=== PATIENT | male | born 1950 | race Caucasian/White ===

== ENCOUNTER → 2016-11-09 | Outpatient (CLI) | payer BC ==
[~2016-11-09] MED LIST: ALPR-411 PO; ASPEC325 PO; CALC1CAP36 PO; CALC1SOL PO; CLOP1TAB5 PO; FRS/40 PO; HPRIS5M SQ; LYR50 PO; METO10TA PO; MGNO400 PO; MRLP17 PO; NITR0.4S SL; ONDA4TAB46 PO; PANT20TA PO; PRS5 PO; ROSU20TA PO; SODI650T9 PO; TEMA15CA4 PO; TPRSR25 PO
[2016-11-09 10:31] LABS: BLOOD UREA NITROGEN 70 mg/dl (7-18); BUN/CREATININE RATIO 22.6 (10-20); CALCIUM 8.3 mg/dl (8.5-10.1); CARBON DIOXIDE 19 mmol/L (21-32); CHLORIDE 113 mmol/L (98-107); GLUCOSE 86 mg/dl (70-99); PHOSPHORUS 4.9 mg/dl (2.5-4.9); POTASSIUM 5.3 mmol/L (3.5-5.1); SODIUM 141 mmol/L (136-145)
[2016-11-09 11:11] LABS: FERRITIN 12.9 ng/ml (8.0-388.0)
== END | disposition home or self-care (01) ==
LOC: C.LAB1850 08:55
PROVIDERS: ATTEND Internal Medicine
DX: D64.9 Anemia, unspecified (principal); N18.9 Chronic kidney disease, unspecified; N17.9 Acute kidney failure, unspecified

== ENCOUNTER → 2016-12-07 | Outpatient (CLI) | payer BC ==
[~2016-12-07] MED LIST changes: -ASPEC325 PO; -HPRIS5M SQ; -MGNO400 PO; -MRLP17 PO; -ROSU20TA PO; -SODI650T9 PO; -TEMA15CA4 PO
[2016-12-07 10:13] LABS: BLOOD UREA NITROGEN 77 mg/dl (7-18); BUN/CREATININE RATIO 22.6 (10-20); CALCIUM 7.8 mg/dl (8.5-10.1); CARBON DIOXIDE 17 mmol/L (21-32); CHLORIDE 114 mmol/L (98-107); GLUCOSE 73 mg/dl (70-99); POTASSIUM 4.2 mmol/L (3.5-5.1); SODIUM 143 mmol/L (136-145)
[2016-12-07 10:18] LABS: PHOSPHORUS 4.4 mg/dl (2.5-4.9)
== END | disposition home or self-care (01) ==
LOC: C.LAB1850 08:53
PROVIDERS: ATTEND Internal Medicine
DX: N18.9 Chronic kidney disease, unspecified (principal); N17.9 Acute kidney failure, unspecified; D64.9 Anemia, unspecified

== ENCOUNTER → 2017-01-04 | Outpatient (CLI) | payer BC ==
[2017-01-04 09:49] LABS: ESTIMATED AVERAGE GLUCOSE 108 mg/dl; HA1C FLAG Normal (Normal)
[2017-01-04 10:07] LABS: BLOOD UREA NITROGEN 97 mg/dl (7-18); BUN/CREATININE RATIO 32.3 (10-20); CALCIUM 8.2 mg/dl (8.5-10.1); CARBON DIOXIDE 18 mmol/L (21-32); CHLORIDE 115 mmol/L (98-107); GLUCOSE 90 mg/dl (70-99); PHOSPHORUS 4.4 mg/dl (2.5-4.9); POTASSIUM 5.3 mmol/L (3.5-5.1); SODIUM 141 mmol/L (136-145)
== END | disposition home or self-care (01) ==
LOC: C.LAB1850 08:49
PROVIDERS: ATTEND Internal Medicine
DX: E11.22 Type 2 diabetes mellitus with diabetic chronic kidney disease (principal); R60.9 Edema, unspecified; D64.9 Anemia, unspecified; N18.9 Chronic kidney disease, unspecified

== ENCOUNTER → 2017-02-15 | Outpatient (CLI) | payer BC ==
[~2017-02-15] MED LIST changes: -PANT20TA PO; +PANT20TA2 PO
[2017-02-15 12:31] LABS: BLOOD UREA NITROGEN 70 mg/dl (7-18); BUN/CREATININE RATIO 22.6 (10-20); CARBON DIOXIDE 19 mmol/L (21-32); CHLORIDE 113 mmol/L (98-107); GLUCOSE 136 mg/dl (70-99); PHOSPHORUS 4.2 mg/dl (2.5-4.9); SODIUM 140 mmol/L (136-145)
[2017-02-15 12:54] LABS: CALCIUM 8.9 mg/dl (8.5-10.1)
== END | disposition home or self-care (01) ==
LOC: C.LAB1850 08:53
PROVIDERS: ATTEND Physician Assistant
DX: N18.9 Chronic kidney disease, unspecified (principal)

== ENCOUNTER → 2017-02-26 | Outpatient (CLI) | payer BC ==
[2017-02-26 13:56] LABS: CHOLESTEROL/HDL RATIO 2.2
== END | disposition home or self-care (01) ==
LOC: C.LAB1850 10:22
PROVIDERS: ATTEND Internal Medicine Cardiovascular Disease
DX: E78.00 Pure hypercholesterolemia, unspecified (principal)

== ENCOUNTER → 2017-03-12 | Outpatient (CLI) | payer BC ==
--- NOTE | 2017-03-12 16:04 | DIAGNOSTIC IMAGING REPORT ---
RIGHT KNEE 3 VIEWS CLINICAL HISTORY: BILATERAL KNEE PAIN Right pain COMPARISON: None. DISCUSSION: Intramedullary len overlying the left femur. Degenerative change all major joint compartments considered moderate. No significant joint effusion. There is no evidence for soft tissue swelling. IMPRESSION: Moderate degenerative change all major joint compartments. Electronically signed by: Joel Ellis M.D. 03/12/2017 4:03 PM Dictated Date/Time: 03/12/2017 4:02 PM
== END | disposition home or self-care (01) ==
LOC: C.RDSM 14:40
PROVIDERS: ATTEND Physician Assistant
DX: M17.0 Bilateral primary osteoarthritis of knee (principal)

== ENCOUNTER → 2017-03-15 | Outpatient (CLI) | payer BC ==
[2017-03-15 09:57] LABS: HEMATOCRIT 32.6 % (42-52)
== END | disposition home or self-care (01) ==
LOC: C.LAB1850 09:19
PROVIDERS: ATTEND Physician Assistant
DX: D64.9 Anemia, unspecified (principal); N18.9 Chronic kidney disease, unspecified

== ENCOUNTER → 2017-04-25 | Outpatient (CLI) | payer BC ==
[~2017-04-25] MED LIST changes: +PANT20TA PO; -PANT20TA2 PO
[2017-04-25 12:58] LABS: BLOOD UREA NITROGEN 86 mg/dl (7-18); BUN/CREATININE RATIO 28.7 (10-20); CALCIUM 8.7 mg/dl (8.5-10.1); CARBON DIOXIDE 19 mmol/L (21-32); CHLORIDE 115 mmol/L (98-107); GLUCOSE 78 mg/dl (70-99); POTASSIUM 4.7 mmol/L (3.5-5.1); SODIUM 142 mmol/L (136-145)
[2017-04-25 13:04] LABS: FERRITIN 80.4 ng/ml (8.0-388.0); PHOSPHORUS 4.2 mg/dl (2.5-4.9); PROSTATE SPECIFIC ANTIGEN 0.171 ng/ml (0.000-4.000)
== END | disposition home or self-care (01) ==
LOC: C.LAB1850 11:40
PROVIDERS: ATTEND Physician Assistant
DX: N18.9 Chronic kidney disease, unspecified (principal); N40.1 Benign prostatic hyperplasia with lower urinary tract symptoms; D64.9 Anemia, unspecified; N17.9 Acute kidney failure, unspecified

== ENCOUNTER → 2017-05-29 | Outpatient (CLI) | payer BC ==
[2017-05-29 12:35] LABS: BLOOD UREA NITROGEN 83 mg/dl (7-18); BUN/CREATININE RATIO 22.4 (10-20); CALCIUM 8.9 mg/dl (8.5-10.1); CARBON DIOXIDE 21 mmol/L (21-32); CHLORIDE 111 mmol/L (98-107); GLUCOSE 193 mg/dl (70-99); PHOSPHORUS 4.6 mg/dl (2.5-4.9); POTASSIUM 4.4 mmol/L (3.5-5.1); SODIUM 140 mmol/L (136-145)
== END | disposition home or self-care (01) ==
LOC: C.LAB1850 10:06
PROVIDERS: ATTEND Physician Assistant
DX: N18.9 Chronic kidney disease, unspecified (principal); N17.9 Acute kidney failure, unspecified; D64.9 Anemia, unspecified

== ENCOUNTER → 2017-06-14 | Outpatient (CLI) | payer BC ==
--- NOTE | 2017-07-01 11:31 | CODING QUERY MEDICAL NECESSITY ---
SUPPORTING DIAGNOSIS NEEDED Young PA, A supporting diagnosis is required for the test/procedure performed on this patient in order for us to be reimbursed by the patient's insurance. Please provide a supporting diagnosis for the following test/procedure listed below next to the test name along with your signature. *If there is no additional diagnosis for this patient that would support the following test/procedure please document that below next to the test/procedure. Test(s)/Procedure(s) that require a supporting diagnosis: * ([id number]) B12 VITAMIN LEVEL DIAGNOSIS: DATE OF SERVICE: 06/14/17 Provider Signature: Date: Thank you Chuck Mancera [facility] Information Management Once completed, please kindly fax back to [phone] For questions please call [phone]
== END | disposition home or self-care (01) ==
LOC: C.LAB1850 09:22
PROVIDERS: ATTEND Physician Assistant
DX: D64.9 Anemia, unspecified (principal)

== ENCOUNTER → 2017-07-12 | Outpatient (CLI) | payer BC ==
[2017-07-12 13:13] LABS: HEMATOCRIT 35.6 % (42-52)
[2017-07-12 13:33] LABS: BLOOD UREA NITROGEN 92 mg/dl (7-18); BUN/CREATININE RATIO 25.6 (10-20); CALCIUM 8.5 mg/dl (8.5-10.1); CARBON DIOXIDE 19 mmol/L (21-32); CHLORIDE 109 mmol/L (98-107); GLUCOSE 95 mg/dl (70-99); PHOSPHORUS 5.5 mg/dl (2.5-4.9); POTASSIUM 4.6 mmol/L (3.5-5.1); SODIUM 138 mmol/L (136-145)
== END | disposition home or self-care (01) ==
LOC: C.LAB1850 12:18
PROVIDERS: ATTEND Physician Assistant
DX: N18.9 Chronic kidney disease, unspecified (principal); D64.9 Anemia, unspecified

== ENCOUNTER → 2017-09-09 | Outpatient (CLI) | payer BC ==
[~2017-09-09] MED LIST changes: -PANT20TA PO; +PANT20TA2 PO
[2017-09-09 14:57] LABS: BLOOD UREA NITROGEN 62 mg/dl (7-18); BUN/CREATININE RATIO 15.7 (10-20); CALCIUM 8.6 mg/dl (8.5-10.1); CARBON DIOXIDE 19 mmol/L (21-32); CHLORIDE 108 mmol/L (98-107); CREATININE 3.95 mg/dl (0.60-1.40); GLUCOSE 95 mg/dl (70-99); POTASSIUM 4.9 mmol/L (3.5-5.1); SODIUM 138 mmol/L (136-145)
[2017-09-09 15:01] LABS: FERRITIN 57.2 ng/ml (8.0-388.0); PHOSPHORUS 4.9 mg/dl (2.5-4.9)
== END | disposition home or self-care (01) ==
LOC: C.LAB1850 12:44
PROVIDERS: ATTEND Physician Assistant
DX: N18.9 Chronic kidney disease, unspecified (principal)

== ENCOUNTER → 2017-10-18 | Outpatient (CLI) | payer BC ==
[~2017-10-18] MED LIST changes: +ALPR0.254 PO; +CALC0.5C PO; +DXY100 PO; +EPGI2M SQ; +IPRA-64 INH; +LSX20 PO; +NEBMAC; +PANT40TA2 PO; +PRED10TA PO; +SODI650T8 PO; +TPRSR/25 PO; +ULT50 PO
[2017-10-18 09:32] LABS: ALBUMIN 3.2 gm/dl (3.4-5.0); BLOOD UREA NITROGEN 53 mg/dl (7-18); CALCIUM 8.5 mg/dl (8.5-10.1); CARBON DIOXIDE 20 mmol/L (21-32); CREATININE 3.78 mg/dl (0.60-1.40); GLUCOSE 100 mg/dl (70-99); PHOSPHORUS 4.3 mg/dl (2.5-4.9); POTASSIUM 5.1 mmol/L (3.5-5.1); SODIUM 137 mmol/L (136-145)
== END | disposition home or self-care (01) ==
LOC: C.LAB1850 08:38
PROVIDERS: ATTEND Physician Assistant
DX: N18.9 Chronic kidney disease, unspecified (principal)

== ENCOUNTER → 2017-11-29 | Outpatient (CLI) | payer BC ==
[~2017-11-29] MED LIST changes: -ALPR0.254 PO; -CALC0.5C PO; -DXY100 PO; -EPGI2M SQ; -IPRA-64 INH; -LSX20 PO; -NEBMAC; -PANT40TA2 PO; -PRED10TA PO; -SODI650T8 PO; -TPRSR/25 PO; -ULT50 PO
[2017-11-29 11:03] LABS: ALBUMIN 3.2 gm/dl (3.4-5.0); BLOOD UREA NITROGEN 97 mg/dl (7-18); CALCIUM 8.5 mg/dl (8.5-10.1); CARBON DIOXIDE 15 mmol/L (21-32); CREATININE 5.38 mg/dl (0.60-1.40); GLUCOSE 99 mg/dl (70-99); PHOSPHORUS 6.6 mg/dl (2.5-4.9); POTASSIUM 4.7 mmol/L (3.5-5.1); SODIUM 135 mmol/L (136-145); TRANSFERRIN 149 mg/dl (200-360)
== END | disposition home or self-care (01) ==
LOC: C.LAB1850 09:26
PROVIDERS: ATTEND Physician Assistant
DX: N18.9 Chronic kidney disease, unspecified (principal); E21.3 Hyperparathyroidism, unspecified

== ENCOUNTER → 2017-12-06 | Outpatient (CLI) | payer BC ==
[2017-12-06 13:14] LABS: BASO % 0.5 %; BASO ABS # 0.04 K/uL (0-0.2); EOS % 4.4 %; EOS ABS # 0.34 K/uL (0-0.5); HEMATOCRIT 34.3 % (42-52); HEMOGLOBIN 11.5 g/dL (14.0-18.0); IG# 0.01 K/uL (0.00-0.02); LYMPH % 14.7 %; LYMPH ABS # 1.13 K/uL (1.2-3.4); MEAN CELL VOLUME 92.2 fL (80-100); MEAN CORPUSCULAR HEMOGLOBIN 30.9 pg (25-34); MEAN CORPUSCULAR HGB CONC 33.5 g/dl (32-36); MEAN PLATELET VOLUME 10.7 fL (7.4-10.4); MONO % 4.5 %; MONO ABS # 0.35 K/uL (0.11-0.59); NEUT % 75.8 %; NEUT ABS # 5.83 K/uL (1.4-6.5); PLATELET COUNT 288 K/uL (130-400); RED CELL DISTRIBUTION WIDTH SD 47.1 fL (36.4-46.3)
[2017-12-06 14:03] LABS: ALBUMIN 3.2 gm/dl (3.4-5.0); BLOOD UREA NITROGEN 104 mg/dl (7-18); CALCIUM 8.9 mg/dl (8.5-10.1); CARBON DIOXIDE 14 mmol/L (21-32); CREATININE 5.98 mg/dl (0.60-1.40); GLUCOSE 108 mg/dl (70-99); PHOSPHORUS 7.1 mg/dl (2.5-4.9); POTASSIUM 4.5 mmol/L (3.5-5.1); SODIUM 136 mmol/L (136-145)
== END | disposition home or self-care (01) ==
LOC: C.LAB1850 12:09
PROVIDERS: ATTEND Internal Medicine
DX: E78.00 Pure hypercholesterolemia, unspecified (principal); N17.9 Acute kidney failure, unspecified; D64.9 Anemia, unspecified; N18.9 Chronic kidney disease, unspecified

== ENCOUNTER → 2017-12-13 | Outpatient (CLI) | payer BC ==
[2017-12-13 15:02] LABS: ALBUMIN 3.2 gm/dl (3.4-5.0); BLOOD UREA NITROGEN 72 mg/dl (7-18); CALCIUM 8.6 mg/dl (8.5-10.1); CARBON DIOXIDE 18 mmol/L (21-32); CREATININE 5.59 mg/dl (0.60-1.40); GLUCOSE 123 mg/dl (70-99); PHOSPHORUS 5.6 mg/dl (2.5-4.9); POTASSIUM 4.1 mmol/L (3.5-5.1); SODIUM 138 mmol/L (136-145)
== END | disposition home or self-care (01) ==
LOC: C.LAB1850 12:41
PROVIDERS: ATTEND Internal Medicine
DX: E78.00 Pure hypercholesterolemia, unspecified (principal)

== ENCOUNTER → 2017-12-18 | Outpatient (CLI) | payer BC ==
[2017-12-18 13:38] LABS: BLOOD UREA NITROGEN 65 mg/dl (7-18); CALCIUM 8.5 mg/dl (8.5-10.1); CARBON DIOXIDE 16 mmol/L (21-32); CREATININE 5.47 mg/dl (0.60-1.40); GLUCOSE 92 mg/dl (70-99); PHOSPHORUS 4.9 mg/dl (2.5-4.9); POTASSIUM 4.1 mmol/L (3.5-5.1); SODIUM 135 mmol/L (136-145)
== END | disposition home or self-care (01) ==
LOC: C.LAB1850 10:44
PROVIDERS: ATTEND Internal Medicine
DX: N18.9 Chronic kidney disease, unspecified (principal)

== ENCOUNTER → 2017-12-20 | Outpatient (CLI) | payer BC ==
--- NOTE | 2017-12-20 13:20 | DIAGNOSTIC IMAGING REPORT ---
ABDOMEN 2VIEW W/PA CHEST RTN CLINICAL HISTORY: HYPERCHOLESTEROLEMIA COMPARISON STUDY: 02/02/2016 FINDINGS: Negative chest. Mild stable emphysematous change. Nonobstructive bowel pattern. Operative changes consistent with a left hip nailing type procedure, cholecystectomy, as well as stents within the arterial structures of the pelvis. IMPRESSION: No acute process of the abdomen or pelvis. The above report was generated using voice recognition software. It may contain grammatical, syntax or spelling errors. Electronically signed by: Joel Ellis M.D. 12/20/2017 1:19 PM Dictated Date/Time: 12/20/2017 1:18 PM
== END | disposition home or self-care (01) ==
LOC: C.RAD1850 13:02
PROVIDERS: ATTEND Internal Medicine
DX: E78.00 Pure hypercholesterolemia, unspecified (principal)

== ENCOUNTER → 2017-12-27 | Outpatient (CLI) | payer BC ==
[2017-12-27 09:59] LABS: HEMATOCRIT 32.2 % (42-52); HEMOGLOBIN 10.5 g/dL (14.0-18.0)
[2017-12-27 10:55] LABS: BLOOD UREA NITROGEN 64 mg/dl (7-18); CALCIUM 8.8 mg/dl (8.5-10.1); CARBON DIOXIDE 16 mmol/L (21-32); CREATININE 5.45 mg/dl (0.60-1.40); GLUCOSE 93 mg/dl (70-99); PHOSPHORUS 5.6 mg/dl (2.5-4.9); POTASSIUM 4.4 mmol/L (3.5-5.1); SODIUM 135 mmol/L (136-145)
== END | disposition home or self-care (01) ==
LOC: C.LAB1850 09:12
PROVIDERS: ATTEND Internal Medicine
DX: E78.00 Pure hypercholesterolemia, unspecified (principal); N17.9 Acute kidney failure, unspecified; D64.9 Anemia, unspecified; N18.9 Chronic kidney disease, unspecified

== ENCOUNTER → 2018-01-03 | Outpatient (CLI) | payer BC ==
[~2018-01-03] MED LIST changes: +CALC0.5C PO; +EPGI2M SQ; +LSX20 PO; +PANT40TA2 PO; +TPRSR/25 PO; +ULT50 PO; +XNX25 PO
[2018-01-03 15:21] LABS: HEMOGLOBIN 10.5 g/dL (14.0-18.0)
[2018-01-03 16:06] LABS: ALBUMIN 2.7 gm/dl (3.4-5.0); BLOOD UREA NITROGEN 69 mg/dl (7-18); CALCIUM 8.4 mg/dl (8.5-10.1); CARBON DIOXIDE 16 mmol/L (21-32); CREATININE 6.07 mg/dl (0.60-1.40); GLUCOSE 100 mg/dl (70-99); PHOSPHORUS 6.1 mg/dl (2.5-4.9); POTASSIUM 4.2 mmol/L (3.5-5.1); SODIUM 134 mmol/L (136-145)
== END | disposition home or self-care (01) ==
LOC: C.LAB1850 14:20
PROVIDERS: ATTEND Internal Medicine
DX: E11.9 Type 2 diabetes mellitus without complications (principal)

== ENCOUNTER 2018-01-10 14:22 | Inpatient (IN) | payer BC, OTHER ==
[~2018-01-10] VITALS: Ht 177.8 cm; Wt 71.2 kg
[~2018-01-10 14:22] MED LIST changes: -CALC0.5C PO; -CLOP1TAB5 PO; -DXY100 PO; -EPGI2M SQ; -IPRASOL4 INH; -LSX20 PO; -NEBMAC; -NITR0.4S SL; -ONDA4TAB46 PO; -PANT40TA2 PO; -PRED10TA PO; -SODI650T8 PO; -TPRSR/25 PO; -ULT50 PO; -XNX25 PO
[2018-01-10] MEDS ORDERED: SODIUM CHLORIDE 0.9% 1000ML 1,000 ML IV STA (15:01)
[2018-01-10] MEDS ORDERED: ALBUT/IPRATROP 3MG/0.5MG NEB 3 ML VIAL INH STA (15:04)
[2018-01-10] MEDS ORDERED: ACETAMINOPHEN IV 100 ML IV ONE (15:15)
[2018-01-10 15:22] LABS: BASO % 0.6 %; BASO ABS # 0.05 K/uL (0-0.2); EOS % 0.7 %; EOS ABS # 0.06 K/uL (0-0.5); HEMATOCRIT 38.4 % (42-52); HEMOGLOBIN 11.9 g/dL (14.0-18.0); IG# 0.03 K/uL (0.00-0.02); LYMPH ABS # 0.76 K/uL (1.2-3.4); MEAN CORPUSCULAR HEMOGLOBIN 30.1 pg (25-34); MEAN PLATELET VOLUME 9.9 fL (7.4-10.4); MONO % 4.5 %; MONO ABS # 0.38 K/uL (0.11-0.59); NEUT % 84.8 %; PLATELET COUNT 394 K/uL (130-400); RED CELL DISTRIBUTION WIDTH CV 15.6 % (11.5-14.5); RED CELL DISTRIBUTION WIDTH SD 55.6 fL (36.4-46.3); WHITE BLOOD COUNT 8.48 K/uL (4.8-10.8)
[2018-01-10] MEDS ORDERED: PANT40TA2 PO (15:33)
[2018-01-10] MEDS ORDERED: ULT50 PO (15:33)
[2018-01-10] MEDS ORDERED: EPGI2M SQ (15:33)
[2018-01-10] MEDS ORDERED: LSX20 PO (15:33)
[2018-01-10] MEDS ORDERED: PRS5 PO (15:33)
[2018-01-10] MEDS ORDERED: XNX25 PO (15:33)
[2018-01-10] MEDS ORDERED: CALC0.5C PO (15:33)
[2018-01-10] MEDS ORDERED: TPRSR/25 PO (15:33)
[2018-01-10 15:47] LABS: ALBUMIN 2.7 gm/dl (3.4-5.0); CALCIUM 8.6 mg/dl (8.5-10.1); CREATININE 5.14 mg/dl (0.60-1.40); POTASSIUM 4.2 mmol/L (3.5-5.1); TOTAL PROTEIN 7.4 gm/dl (6.4-8.2)
[2018-01-10] MEDS ORDERED: DOXYCYCLINE HYCLATE 100 MG in DEXTROSE 5% 100ML IV STA (15:58)
[2018-01-10] MEDS ORDERED: AZTREONAM 2000 MG in DEXTROSE 5% 100 ML IV STA (15:58)
[2018-01-10] MEDS ORDERED: NITR0.4S SL (16:00)
[2018-01-10] MEDS ORDERED: CLOP1TAB5 PO (16:00)
[2018-01-10] MEDS ORDERED: ONDA4TAB46 PO (16:31)
[2018-01-10] MEDS ORDERED: TRAMADOL HCL 50 MG TAB PO STA (16:34)
[2018-01-10] MEDS ORDERED: ALUMINUM/MAGNESIUM/SIMETH (MAALOX MAX) 30 ML UDC PO PRN (16:45)
[2018-01-10] MEDS ORDERED: ONDANSETRON INJ 2 MG/ML 2 ML VIAL IV PRN (16:45)
[2018-01-10] MEDS ORDERED: MAGNESIUM HYDROXIDE SUSP 30 ML UDC PO PRN (16:45)
[2018-01-10] MEDS ORDERED: NITROGLYCERIN 0.4 MG SL PER TAB CHARGE SL PRN (16:45)
[2018-01-10] MEDS ORDERED: POLYETHYLENE (MIRALAX) 17 GM PACK PO PRN (16:45)
[2018-01-10] MEDS ORDERED: ACETAMINOPHEN 325 MG TAB PO PRN (16:45)
[2018-01-10] MEDS ORDERED: ARTIFICIAL TEARS OP SOLN OP PRN (16:45)
--- NOTE | 2018-01-10 16:50 | History and Physical ---
History & Physical Date & Time of Service: Jan 10, 2018 at 16:47 Chief Complaint: Pneumonia Primary Care Physician: Jesus Maravilla M.D. History of Present Illness Source: patient, spouse Mr. Miranda is a 67 y/o male with PMHx of Systolic CHF (EF 20-25%), CKD Stage IV- V (not on dialysis yet), CAD S/P LA and PCI, Anemia of Chronic Disease, T2DM ( off medications), BPH, Hyperparathyroidism, HTN, HLD, Paroxysmal Atrial Fibrillation/SVT, and H/O Gastric Bypass Surgery who presents to the ED c/o cough x 2 weeks. Patient gets Q2W blood draws to assess his anemia and to see if he needs Procrit which he received a dose today. His reports that she saw Dr. Samayoa and was concerned due to his coughing and he ordered an XRay. CXR showing subsegmental opacities of the posterior basal left lower lobe which may be pneumonia vs atelectasis and mild blunting of bilateral posterior costophrenic angles that is scarring vs atelectasis vs effusions. reports that they both have been dealing with URI symptoms but she feels like he is not getting better. He completed a Z-martinez during this illness but did not get complete relief. He reports sinus congestion and post nasal drip. He has a productive cough of yellow sputum. He has also been utilizing his 's inhaler with some relief of his symptoms. He had issues with asthma in the past but states he has had no long-term issues. He has a H/O smoking but quit in 2008 but does not think he has been diagnosed with COPD. He is also complaining of burning chest pain that has been resistant to his normal acid reducers. thinks he had a fever a couple days ago but it broke and he had a night of sweating but since returned to his normal. States he is always feeling cold. He also has some mild irritation to his L eye and states pink eye has been circulating the family. He denies purulent discharge or eye irritation currently. Also having some feeling of water behind the eyes but hard to completely visualize due to cerumen. There is some mild tenderness to tugging of the pinna of the L eye on examination. 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, One Eye (12) BPH with obstruction/lower urinary tract symptoms (13) Chronic kidney disease, stage V (14) Congestive Heart Failure Nos (15) Diab Syl Wo Compl, Type Ii Or Unspec Type, Not Uncntrld (16) Esophageal Reflux (17) Head injury (18) Hip fracture (19) Hyperkalemia (20) Hyperkalemia (21) Hyperphosphatemia (22) Hypertension Nos (23) Infection associated with internal fixation device of left humerus (24) Intertrochanteric fracture of left hip (25) Ischemic heart disease (26) Left humeral fracture (27) Left humeral fracture (28) Neuropathy In Diabetes (29) Old Myocardial Infarct (30) Pneumonia (31) Renal & Ureteral Dis Nos (32) Renal insufficiency (33) Secondary hyperparathyroidism (34) Symptomatic anemia (35) Syncope (36) Syncope (37) Unspec Diastolic Hrt Failure (38) Unspecified Sleep Apnea (39) UTI (urinary tract infection) (40) Vomiting and diarrhea (41) Vomiting and diarrhea (42) Vomiting and diarrhea (43) Weakness Surgical Problems: (1) History of gastric bypass (2) Hx of cholecystectomy Family History Heart disease Kidney disease (His Brother had renal failure but etiology not known) Social History Smoking Status: Former Smoker Drug Use: none Marital Status: Housing status: lives with family Immunizations History of Influenza Vaccine: Unknown Influenza Vaccine Date: Jul 16, 2005 History of Tetanus Vaccine?: Unknown Tetanus Immunization Date: Jan 19, 2006 History of Pneumococcal: Unknown Pneumococcal Date: Jul 16, 2005 History of Hepatitis B Vaccine: Unknown Allergies Coded Allergies: BEE STING (Verified Allergy, Severe, ANAPHYLAXIS, 11/28/16) Penicillins (Verified Allergy, Severe, Anaphylaxis, OK to receive Invanz per Dr. [place], 11/28/16) Per RN Vancomycin (Verified Allergy, Severe, anaphylaxis, 11/28/16) Adhesives (Verified Allergy, Unknown, TAPE, 11/28/16) Home Medications Scheduled Alprazolam (Alprazolam), 0.5 MG PO HS Calcitriol (Calcitriol), 0.5 MCG PO DAILY Clopidogrel Bisulfate (Plavix), 75 MG PO DAILY Epoetin Andrew (Procrit), 1 DOSE SQ UD Finasteride (Finasteride), 5 MG PO Q2D Metoprolol Succinate (Metoprolol Succinate ER), 12.5 MG PO HS Ondansetron Hcl (Zofran), 4 MG PO Q6 Pantoprazole (Pantoprazole Sodium), 40 MG PO DAILY Tramadol HCl (Tramadol HCl), 50 MG PO AMHS Scheduled PRN Furosemide (Furosemide), 20 MG PO DAILY PRN for EDEMA Nitroglycerin (Nitrostat), 0.4 MG SL UD PRN for Chest Pain Review of Systems Constitutional: + fever, + chills, + weight loss (chronic) Eyes: + redness (L eye and irritated) ENT: + nasal symptoms, No trouble swallowing Respiratory: + cough, + sputum, + wheezing, + shortness of breath, No hemoptysis Cardiovascular: No chest pain Abdomen: No pain, No nausea, No vomiting, No diarrhea, No constipation, No GI bleeding Musculoskeletal: No swelling, No calf pain Genitourinary - Male: + urinary frequency, No dysuria Hematologic / Lymphatic: No abnormal bleeding/bruising, No clotting problems Integumentary: No rash Physical Exam Vital Signs Date Time Temp Pulse Resp B/P (MAP) Pulse Ox O2 Delivery O2 Flow Rate FiO2 01/10/18 16:40 101 01/10/18 16:28 104 16 132/81 100 Room Air 01/10/18 15:22 98 Room Air 01/10/18 14:26 115 24 124/64 98 Room Air General Appearance: no apparent distress, + cachetic Head: normocephalic, atraumatic Eyes: + abnormal sclerae exam (minimal conjunctivitis without purulent drainage ) ENT: hearing grossly normal, + pertinent finding (cerumen b/l; tenderness with pulling on pinna of L ear; oral mucosa dry) Neck: supple, no JVD, trachea midline Respiratory/Chest: no respiratory distress, no accessory muscle use, + decreased breath sounds Cardiovascular: regular rate, rhythm, no gallop, no murmur Abdomen/GI: normal bowel sounds, non tender, soft Extremities/Musculoskelatal: no calf tenderness, no pedal edema Neurologic/Psych: alert, oriented x 3 Skin: normal color, warm/dry Diagnostics Laboratory Results Results Past 24 Hours Test 01/10/18 14:50 01/10/18 15:07 01/10/18 15:19 Range/Units White Blood Count 8.48 4.8-10.8 K/uL Red Blood Count 3.96 4.7-6.1 M/uL Hemoglobin 11.9 14.0-18.0 g/dL Hematocrit 38.4 42-52 % Mean Corpuscular Volume 97.0 80-100 fL Mean Corpuscular Hemoglobin 30.1 25-34 pg Mean Corpuscular Hemoglobin Concent 31.0 32-36 g/dl Platelet Count 394 130-400 K/uL Mean Platelet Volume 9.9 7.4-10.4 fL Neutrophils (%) (Auto) 84.8 % Lymphocytes (%) (Auto) 9.0 % Monocytes (%) (Auto) 4.5 % Eosinophils (%) (Auto) 0.7 % Basophils (%) (Auto) 0.6 % Neutrophils # (Auto) 7.20 1.4-6.5 K/uL Lymphocytes # (Auto) 0.76 1.2-3.4 K/uL Monocytes # (Auto) 0.38 0.11-0.59 K/uL Eosinophils # (Auto) 0.06 0-0.5 K/uL Basophils # (Auto) 0.05 0-0.2 K/uL RDW Standard Deviation 55.6 36.4-46.3 fL RDW Coefficient of Variation 15.6 11.5-14.5 % Immature Granulocyte % (Auto) 0.4 % Immature Granulocyte # (Auto) 0.03 0.00-0.02 K/uL Sodium Level 138 136-145 mmol/L Potassium Level 4.2 3.5-5.1 mmol/L Chloride Level 110 98-107 mmol/L Carbon Dioxide Level 17 21-32 mmol/L Anion Gap 11.0 3-11 mmol/L Blood Urea Nitrogen 61 7-18 mg/dl Creatinine 5.14 0.60-1.40 mg/dl Est Creatinine Clear Calc Drug Dose 13.6 ml/min Estimated GFR () 12.5 Estimated GFR (Non- 10.8 BUN/Creatinine Ratio 12.0 10-20 Random Glucose 165 70-99 mg/dl Calcium Level 8.6 8.5-10.1 mg/dl Total Bilirubin 0.3 0.2-1 mg/dl Direct Bilirubin 0.1 0-0.2 mg/dl Aspartate Amino Transf (AST/SGOT) 11 15-37 U/L Alanine Aminotransferase (ALT/SGPT) 10 12-78 U/L Alkaline Phosphatase 68 45-117 U/L Total Protein 7.4 6.4-8.2 gm/dl Albumin 2.7 3.4-5.0 gm/dl Lipase 89 73-393 U/L Bedside Troponin I 0.170 0-0.045 ng/ml Bedside Lactic Acid Venous 1.85 0.90-1.70 mmol/L Microbiology Results 01/10/18 Blood Culture, Received Pending 01/10/18 Blood Culture, Received Pending Diagnostic Radiology CHEST 2 VIEWS ROUTINE HISTORY: 67 years-old Male R05 Cough acute cough COMPARISON: Acute abdominal series radiographs 12/20/2017 TECHNIQUE: PA and lateral views of the chest FINDINGS: Cardiomediastinal and hilar silhouettes are within normal limits. Atherosclerosis of the aorta. No pneumothorax. Lungs are hyperinflated with diaphragmatic flattening. Blunting of the posterior costophrenic angles suggests. Minimal subsegmental opacities of the posterior basal left lower lobe. Bones of the chest appear grossly intact. Multilevel endplate spurring about the spine. Surgical clips of the upper abdomen. IMPRESSION: 1. Subsegmental opacities of the posterior basal left lower lobe suggest atelectasis or pneumonia. 2. Mild blunting of the bilateral posterior costophrenic angles may be secondary to scarring/atelectasis or trace effusions. 3. Mild hyperinflation. EKG Sinus rhythm with 1st degree A-V block Non-specific intra-ventricular conduction block T wave abnormality, consider inferolateral ischemia Abnormal ECG When compared with ECG of 14-NOV-2015 06:44, QRS duration has increased Premature ventricular complexes are no longer Present Confirmed by KATHERINE RIVERA ([id number]) on 01/10/2018 3:24:02 PM Impression Assessment and Plan Mr. Miranda is a 67 y/o male with PMHx of Systolic CHF (EF 20-25%), CKD Stage IV- V (not on dialysis yet), CAD S/P LA and PCI, Anemia of Chronic Disease, T2DM ( off medications), BPH, Hyperparathyroidism, HTN, HLD, Paroxysmal Atrial Fibrillation/SVT, and H/O Gastric Bypass Surgery who presents to the ED c/o cough x 2 weeks. Pneumonia: - Due to anaphylaxis allergies and concern for QT prolongation - pharmacy recommending Aztreonam and Doxycycline -- Completed Z-martinez as outpatient - Duonebs - Gently hydrate with NSS at 75 mL/hr as patient appears dry and skin turgor is poor - will only give 1 bag and reassess given EF of only 20-25% - Has a smoking history but no wheezing on examination currently and will hold on steroids at this time Chest Pain and Elevated Troponins: - Likely related to GI causes and inflammation from possible pneumonia - will trend troponins which likely will be elevated in setting of CKD - will monitor on telemetry - Protonix 40 mg daily L Eye Irritation and L Ear Pain: - Eye does not appear infectious and is only minimally red without drainage - will use artificial tears to assist with irritation - Ciprodex ear drops in L ear - may need cerumen removal Weight Loss: - Reporting progressive weight loss and lack of appetite - will continue to monitor and try to encourage oral intake - currently placed renal diet CKD Stage IV-V: Baseline 5.3-5.5 - Producing adequate urine and electrolytes acceptable - follows with Dr. Hawkins ; planning to hold on dialysis as long as possible - has AV fistula placed in preparation - Cr currently is better than his baseline - will continue to monitor and avoid nephrotoxins CAD S/P LA and PCI and Chronic Systolic CHF: Appears Hypovolemic: - Has not required Lasix for approx. 1 month - is followed closely by Dr. Hawkins for volume control in setting of CKD - Reports H/O paroxysmal atrial fibrillation - not on AC - Plavix 75 mg daily and Toprol XL 12.5 mg HS BPH: - Proscar 5 mg Q2D Insomnia: - Xanax 0.5 mg HS Chronic Back Pain: - Ultram 50 mg BID T2DM (Resolved since Gastric Bypass): Continue to monitor just with BMPs DVT Prophylaxis: Heparin Code Status: FULL RESUSCITATION Disposition: PT/OT evaluations I personally interviewed and examined the patient. I agree with history of present illness and physical exam mentioned above, I also performed my own history taking and examination. Past medical history and review of system has been obtained by myself I reviewed all pertinent labs and studies Reviewed current medications I discussed and formulated of the assessment and plan mentioned above. Please refer to the Summary mentioned below. 67 years old man with chronic kidney disease stage V at the age of dialysis status post fistula placement, CAD status post LA and PCI, severe anemia likely of chronic diseases, hyperparathyroidism, hypertension, dyslipidemia, systolic congestive heart failure with ejection fraction of 20%, paroxysmal atrial fibrillation, and gastric bypass surgery. Patient has been having subacute productive cough with generalized weakness, weight loss, fatigue. Patient appears chronically ill, out of proportion of his chest x-ray findings. Also appears to be cachectic. Patient is being admitted for pneumonia but I will order CT scan chest without contrast to rule out any underlying mass or empyema, also will order TSH, will order anemia studies including B12 and folate giving his history of gastric bypass that could be contributing to his anemia of chronic diseases.. General Appearance: Appears to be in moderate acute distress, cachectic Eyes: normal Sclerae, extraocular muscle intact ENT: hearing grossly normal Neck: supple Respiratory/Chest: Decreased air entry bilaterally, scattered rhonchi Cardiovascular: regular rate, rhythm, no murmur Abdomen: non tender, soft, no masses Extremities: no edema Neurologic/Psychiatric: Awake alert oriented times place and person moves all extremities sensation intact cranial nerves II-12 appear to be intact Skin: normal color, warm/dry, no rash Alexsander Elder MD, [facility] Resuscitation Status VTE Prophylaxis Will order VTE Prophylaxis: Yes
[2018-01-10] MEDS ORDERED: TRAMADOL HCL 50 MG TAB ONE (16:58)
[2018-01-10 20:00] VITALS: BP 126/81; PULSE 93; TEMP 36.3; Ht 177.8 cm; Wt 71.2 kg
[2018-01-10 20:16] VITALS: BP 126/81; PULSE 93; TEMP 36.3; O2SAT 100
[2018-01-10 20:26] LABS: RETIC COUNT % 2.5 % (0.5-2.0)
--- NOTE | 2018-01-10 20:48 | EMERGENCY ROOM VISIT NOTE ---
ED Visit Note First contact with patient: 14:48 I have personally evaluated and examined this patient. I agree with assessment and plan of Feliciano Marroquin PA-C. 67 yr old male arrives with sepsis secondary to pneumonia. IV fluids started and empiric abx given. Not in septic shock and with his history would hold off on 30ml/kg IV fluids at this time.
[2018-01-10] MEDS ORDERED: SODIUM CHLORIDE 0.9% 1000ML 1,000 ML IV SCH (21:05)
[2018-01-10] MEDS: CIPRO 0.3%/DEXAMETHASONE 0.1% OTIC SUSP 7.5ML OTL SCH (22:38)
[2018-01-10] MEDS: METOPROLOL SUCC 25MG EXT REL TAB PO SCH (22:39)
[2018-01-10] MEDS: TRAMADOL HCL 50 MG TAB PO SCH (22:39)
[2018-01-10] MEDS: ALPRAZOLAM 0.25 MG TAB PO SCH (22:39)
--- NOTE | 2018-01-10 23:34 | EMERGENCY ROOM VISIT NOTE ---
ED Visit Note First contact with patient: 14:48 Chief Complaint: Pneumonia. History of Present Illness: Mr. Potter is a 67-year-old white male who ambulates into the ED accompanied by his complaining of pneumonia. Patient and reports patient has not been feeling well for approximately the last 2 weeks and has been having a nonproductive cough, tactile fevers, weakness and fatigue. 12 days ago he was seen by his primary care provider and was diagnosed with bronchitis and was prescribed a Zithromax pack. He reports he saw some mild improvement in his cough but over the last week it has returned and intensified. Today he was seen to have his hemoglobin hematocrit checked for his chronic anemia and a chest x-ray was performed which showed a left lower lobe pneumonia. He was encouraged to come to the emergency department for further evaluation and care. During his visit at the doctor's today reports he did get Procrit. Currently patient is complaining of feeling short of breath and is having chest discomfort. He reports the shortness of breath is constant and worsens with ambulation. He reports minimal relief of his shortness of breath at rest. He describes his chest discomfort as a burning sensation throughout the anterior chest wall. He rates this discomfort 7/10. The pain is nonradiating. The pain worsens with cough. He has not identified any alleviating factors related to the pain. He has not taken any medications for this discomfort prior to arrival at the hospital. Associated with his symptoms it is reported that he has had tactile fevers and patient complains of increasing fatigue and weakness. Patient denies diaphoresis, headache, dizziness, lightheadedness, hemoptysis, previous clots, claudication, cramping, recent surgery/inactivity/extended travel, abdominal pain, nausea, vomiting, diarrhea, constipation, rectal bleeding, black/tarry stools, urinary symptoms, back/flank pain, extremity pain. Review of Systems: As noted above in history of present illness. All body systems were reviewed and found to be negative as noted above. Past Medical History: As noted above and (1) Anemia Nos (2) Angina Pectoris Nec/Nos (3) Atrial Fibrillation (4) Blindness, One Eye (5) BPH with obstruction/lower urinary tract symptoms (6) Chronic kidney disease, stage V (7) Congestive Heart Failure Nos (8) Diab Syl Wo Compl, Type Ii Or Unspec Type, Not Uncntrld (9) Esophageal Reflux (10) Hip fracture (11) Hyperphosphatemia (12) Hypertension Nos (13) Ischemic heart disease (14) Neuropathy In Diabetes (15) Old Myocardial Infarct (16) Renal & Ureteral Dis Nos (17) Secondary hyperparathyroidism (18) Unspec Diastolic Hrt Failure (19) Unspecified Sleep Apnea Surgical Problems: (1) History of gastric bypass (2) Hx of cholecystectomy Current Medications: Medications Dose Route/Sig Max Daily Dose Days Date Category Dose Instructions Procrit (Epoetin Andrew) Unknown Strength Inj 1 Dose SQ UD 01/10/18 Reported Tramadol HCl 50 Mg Tab 50 Mg PO AMHS 01/10/18 Reported Calcitriol 0.5 Mcg Cap 0.5 Mcg PO DAILY 01/10/18 Reported Pantoprazole Sodium (Pantoprazole) 40 Mg Tab 40 Mg PO DAILY 01/10/18 Reported Metoprolol Succinate ER (Metoprolol Succinate) 25 Mg Tabcr 12.5 Mg PO HS 01/10/18 Reported Furosemide 20 Mg Tab 20 Mg PO DAILY PRN 01/10/18 Reported Finasteride 5 Mg Tab 5 Mg PO Q2D 01/10/18 Reported Alprazolam 0.25 Mg Tab 0.5 Mg PO HS 01/10/18 Reported Zofran (Ondansetron HCl) 4 Mg Tab 4 Mg PO Q6 09/13/15 Reported Nitrostat (Nitroglycerin) 0.4 Mg Sub 0.4 Mg SL UD PRN 05/27/[address] ONE TABLET UNDER THE TONGUE EVERY 5 MINUTES FOR UP TO 3 DOSES IF NEEDED FOR CHEST PAIN. Plavix (Clopidogrel Bisulfate) 75 Mg Tab 75 Mg PO DAILY 05/27/14 Reported Allergies to Medications: Penicillin and vancomycin. Social History: Patient is not employed; he feels safe in his home environment; Physical Examination: Vital Signs: Date Time Temp Pulse Resp B/P (MAP) Pulse Ox O2 Delivery O2 Flow Rate FiO2 01/10/18 16:40 101 01/10/18 16:28 104 16 132/81 100 Room Air 01/10/18 15:22 98 Room Air 01/10/18 14:26 115 24 124/64 98 Room Air GENERAL: 67-year-old male in mild respiratory distress, chronically ill- appearing, afebrile, tachycardic but not hypotensive. Patient is emaciated. NEUROLOGICAL: Awake, alert and oriented to person, place and time. Patient is slow to respond. Answering questions appropriately and following commands. Good hand eye coordination. Good short-term and long-term recall. Cranial nerves II through XII grossly intact. SKIN: Warm, very dry and pink. No soft tissue eruptions or trauma noted. HEENT: Atraumatic and normocephalic. Tympanic membranes were not erythematous or edematous. No tenderness or erythema over the frontal or maxillary sinuses. PERRLA. Sclera white and conjunctiva pink. No drainage from naris. Oral cavity dry and pink. Airway is patent. Pharynx is nonerythematous or edematous. Speech normal and soft. No lymphadenopathy. Trachea midline. No jugular venous distention. BACK: No tenderness over the bony spine. No CVA tenderness. THORAX: Lungs sounds are decreased bilateral with inspiratory wheezing in all metz. Symmetrical chest wall movements. After his breathing treatment I re- listened to his lungs and had resolution of wheezing but I did appreciate a few rales in the left base. Slight increase in respiratory rate and effort. No crepitus, tenderness, subcutaneous air or deformities noted. HEART: Tachycardic rate and regular rhythm. A soft systolic murmur was heard on the left sternal border. No gallops, rubs or murmurs are appreciated. ABDOMEN: Flat, soft and nontender. Decreased bowel sounds in all quadrants. No guarding, rigidity or organomegaly. EXTREMITIES: Moves all extremities well on command and with purpose. All distal neurovascular statuses are intact and equal bilaterally. No calf tenderness or cords. No dependent edema. ED Course: Patient is assessed as noted above. Patient's medication list were reviewed. Laboratory Testing: Test 01/10/18 14:50 01/10/18 15:07 01/10/18 15:19 Range/Units White Blood Count 8.48 4.8-10.8 K/uL Red Blood Count 3.96 4.7-6.1 M/uL Hemoglobin 11.9 14.0-18.0 g/dL Hematocrit 38.4 42-52 % Mean Corpuscular Volume 97.0 80-100 fL Mean Corpuscular Hemoglobin 30.1 25-34 pg Mean Corpuscular Hemoglobin Concent 31.0 32-36 g/dl Platelet Count 394 130-400 K/uL Mean Platelet Volume 9.9 7.4-10.4 fL Neutrophils (%) (Auto) 84.8 % Lymphocytes (%) (Auto) 9.0 % Monocytes (%) (Auto) 4.5 % Eosinophils (%) (Auto) 0.7 % Basophils (%) (Auto) 0.6 % Neutrophils # (Auto) 7.20 1.4-6.5 K/uL Lymphocytes # (Auto) 0.76 1.2-3.4 K/uL Monocytes # (Auto) 0.38 0.11-0.59 K/uL Eosinophils # (Auto) 0.06 0-0.5 K/uL Basophils # (Auto) 0.05 0-0.2 K/uL RDW Standard Deviation 55.6 36.4-46.3 fL RDW Coefficient of Variation 15.6 11.5-14.5 % Immature Granulocyte % (Auto) 0.4 % Immature Granulocyte # (Auto) 0.03 0.00-0.02 K/uL Sodium Level 138 136-145 mmol/L Potassium Level 4.2 3.5-5.1 mmol/L Chloride Level 110 98-107 mmol/L Carbon Dioxide Level 17 21-32 mmol/L Anion Gap 11.0 3-11 mmol/L Blood Urea Nitrogen 61 7-18 mg/dl Creatinine 5.14 0.60-1.40 mg/dl Est Creatinine Clear Calc Drug Dose 13.6 ml/min Estimated GFR () 12.5 Estimated GFR (Non- 10.8 BUN/Creatinine Ratio 12.0 10-20 Random Glucose 165 70-99 mg/dl Calcium Level 8.6 8.5-10.1 mg/dl Total Bilirubin 0.3 0.2-1 mg/dl Direct Bilirubin 0.1 0-0.2 mg/dl Aspartate Amino Transf (AST/SGOT) 11 15-37 U/L Alanine Aminotransferase (ALT/SGPT) 10 12-78 U/L Alkaline Phosphatase 68 45-117 U/L Total Protein 7.4 6.4-8.2 gm/dl Albumin 2.7 3.4-5.0 gm/dl Lipase 89 73-393 U/L Bedside Troponin I 0.170 0-0.045 ng/ml Bedside Lactic Acid Venous 1.85 0.90-1.70 mmol/L Blood Culture: Pending EKG: Was read by myself and reviewed with Dr. Thompson; shows sinus rhythm with first-degree AV block. Ventricular rate 98 bpm. He has deepening depression in the inferior lateral leads. This was compared to previous and the ST changes are slightly worse and he has widening of the QRS duration. Chest x-ray as noted above. Patient was hydrated with normal saline and initially received 1 g of acetaminophen IV for pain and an albuterol/Atrovent nebulizer breathing treatment. After his treatment he was reassessed and he had no longer wheezing present but still looks slightly dyspneic. Also his chest burning sensation improved and was now rated 2/10. Patient's case was reviewed with Dr. Thompson; he and apparently assessed the patient and we agreed on diagnostic approach, treatment, disposition and plan. Patient's case was consulted with the ED pharmacist and she recommended doxycycline and aztreonam for his antibiotic coverage; his doses were calculated by the pharmacist and ordered and started while in the emergency department.. Patient's case was consulted with case management and Dr. Champagne, hospitalist , for medical observation/admission. Patient is were educated about today's findings. Clinical Impression: Sepsis. Left lower lobe pneumonia. Elevated troponin. Decision-Making: Initially my differential diagnosis I considered sepsis, acute coronary syndrome, congestive heart failure, pulmonary embolism and other causes. Disposition and Plan: Patient to be brought into the hospital by the hospitalist ; please see their notes and orders for final disposition and plan.
[2018-01-10 23:46] VITALS: BP 114/68; PULSE 93; TEMP 36.4; O2SAT 95
[2018-01-11] VITALS (11 sets, daily range): BP systolic 112–129; BP diastolic 73–82; PULSE 79–98; TEMP 36.3–36.8; O2SAT 94–100
[2018-01-11] MEDS: ALBUT/IPRATROP 3MG/0.5MG NEB 3 ML VIAL INH SCH ×5 (01:20→19:27)
[2018-01-11 03:50] LABS: ALBUMIN 2.3 gm/dl (3.4-5.0); CALCIUM 7.7 mg/dl (8.5-10.1); CREATININE 4.82 mg/dl (0.60-1.40); POTASSIUM 4.3 mmol/L (3.5-5.1)
[2018-01-11] MEDS: CIPRO 0.3%/DEXAMETHASONE 0.1% OTIC SUSP 7.5ML OTL SCH ×4 (04:37→20:53)
[2018-01-11] MEDS: DOXYCYCLINE IV 100 MG in DEXTROSE 5% 100ML 100 ML IV SCH ×2 (04:37→15:44)
[2018-01-11 07:20] LABS: BASO ABS # 0.05 K/uL (0-0.2); EOS % 2.8 %; EOS ABS # 0.14 K/uL (0-0.5); HEMOGLOBIN 10.6 g/dL (14.0-18.0); IG# 0.03 K/uL (0.00-0.02); LYMPH % 16.5 %; LYMPH ABS # 0.84 K/uL (1.2-3.4); MEAN CELL VOLUME 96.3 fL (80-100); MEAN CORPUSCULAR HGB CONC 31.2 g/dl (32-36); MEAN PLATELET VOLUME 9.8 fL (7.4-10.4); MONO % 7.7 %; MONO ABS # 0.39 K/uL (0.11-0.59); NEUT % 71.4 %; NEUT ABS # 3.63 K/uL (1.4-6.5); PLATELET COUNT 346 K/uL (130-400); RED CELL DISTRIBUTION WIDTH SD 56.7 fL (36.4-46.3); WHITE BLOOD COUNT 5.08 K/uL (4.8-10.8)
[2018-01-11] MEDS: AZTREONAM IV 1,000 MG in DEXTROSE 5% 100ML 100 ML IV SCH ×4 (07:37→15:44)
[2018-01-11] MEDS: CALCITRIOL 0.25 MCG CAP PO SCH (07:38)
[2018-01-11] MEDS: PANTOprazole SOD 40 MG TAB PO SCH (07:38)
[2018-01-11] MEDS: CLOPIDOGREL BISULFATE 75 MG TAB PO SCH (07:39)
[2018-01-11] MEDS: FINASTERIDE 5 MG TAB PO SCH (07:39)
[2018-01-11] MEDS: TRAMADOL HCL 50 MG TAB PO SCH ×2 (07:49→20:58)
--- NOTE | 2018-01-11 09:35 | DIAGNOSTIC IMAGING REPORT ---
(CHEST) THORAX WITHOUT CT DOSE: 253.82 mGy.cm HISTORY: Dysphagia abnormal CXR, density in lung w weight loss TECHNIQUE: Multiaxial CT images of the chest were performed without contrast. A dose lowering technique was utilized adhering to the principles of ALARA. COMPARISON: 01/26/2011 FINDINGS: Trace pleural fluid both lung bases. Parenchymal infiltrative process left lower lobe. Groundglass 7 mm nodule right middle lobe. Lungs are considered clear. Nonspecific mediastinal adenopathy unchanged from the prior exam. Pretracheal nodes measure to 1.3 cm. No significant hilar adenopathy within limitations of an unenhanced scan. IMPRESSION: 1. Small parenchymal infiltrate left lower lobe. 2. Small bilateral pleural effusions. 3. 7 mm groundglass nodule peripheral aspect right middle lobe with follow-up per Fleischner criteria. 4. Upper abdominal findings consistent with a prior gastroplasty. Please refer to below summary of Fleischner criteria recommendations for follow-up of incidental CT nodules (Natacha Walsh, Guidelines for management of small pulmonary nodules detected on CT scans: A statement from the Fleischner Society, Radiology [phone]: [phone].) SOLID NODULES Solitary nodule size: <6 mm * low risk patients: no follow-up needed * high risk patients: optional CT at 12 months Solitary nodule size: 6-8 mm * low risk patients: follow-up at 6-12 months, then consider further follow-up at 18-24 months * high risk patients: initial follow-up CT at 6-12 months and then at 18-24 months if no change Solitary nodule size: >8 mm * either low or high risk patients - consider follow-up CT at 3 months, and/or CT-PET, and/or biopsy Multiple nodules size: <6 mm * low risk patients: no routine follow-up * high risk patients: optional CT at 12 months Multiple nodules size: 6-8 mm * low risk patients: follow-up at 3-6 months, then consider further follow-up at 18-24 months * high risk patients: follow-up at 3-6 months, then at 18-24 months if no change Multiple nodules size: >8 mm * low risk patients: follow-up at 3-6 months, then consider further follow-up at 18-24 months * high risk patients: follow-up at 3-6 months, then at 18-24 months if no change Note: newly detected indeterminate nodule in persons 35 years of age or older. * low risk patients: minimal or absent history of smoking and/or other known risk factors * high risk patients: history of smoking or of other known risk factors (e.g. first degree relative with lung cancer, or exposure to asbestos, radon, uranium) * if a nodule up to 8 mm is partly solid or is ground glass further follow-up is required after 24 months to exclude possible slow growing adenocarcinoma ([place]) SUBSOLID NODULES Solitary pure ground-glass nodule * nodule size <6 mm - no CT follow-up required * nodule size >=6 mm - follow-up CT at 6-12 months, then every 2 years until 5 years Solitary part-solid nodule * nodule size <6 mm - no CT follow-up required * nodule size >=6 mm - follow-up CT at 3-6 months. If unchanged, and solid component remains <6 mm, then annual follow-up for 5 years Multiple subsolid nodules * nodule size <6 mm - follow-up CT at 3-6 months, consider further follow-up at 2 and 4 years if stable * nodule size >=6 mm - follow-up CT at 3-6 months, subsequent management based on the most suspicious nodule(s) The above report was generated using voice recognition software. It may contain grammatical, syntax or spelling errors. Electronically signed by: Joel Ellis M.D. 01/11/2018 9:34 AM Dictated Date/Time: 01/11/2018 9:30 AM
[2018-01-11] MEDS: GUAIFENESIN 600 MG TABCR PO SCH ×2 (15:44→20:52)
[2018-01-11] MEDS: METOPROLOL SUCC 25MG EXT REL TAB PO SCH (20:54)
--- NOTE | 2018-01-11 20:55 | Progress Note ---
Subjective Date of Service: Jan 11, 2018. Subjective Pt evaluation today including: conversation w/ patient, physical exam, chart review, lab review, review of studies (CT chest), review of inpatient medication list Pain: none voiced PO Intake: "ate too good" today Voiding: no voiding problems tele stable overnight cough x 1 week; largely nonproductive has LUE AVF for future dialysis needs followed by Dr. Hawkins feels "ok" today no fever Problem List Medical Problems: (1) Head injury Status: Acute (2) Hyperkalemia Status: Acute (3) Intertrochanteric fracture of left hip Status: Acute (4) Renal insufficiency Status: Acute (5) Syncope Status: Acute Review of Systems Constitutional: No fever, No chills Respiratory: + cough, No dyspnea at rest, No hemoptysis Cardiac: No chest pain, No orthopnea Abdomen: No pain Objective Vital Signs Date Time Temp Pulse Resp B/P (MAP) Pulse Ox O2 Delivery O2 Flow Rate FiO2 01/11/18 20:00 99 Room Air 01/11/18 19:34 36.6 97 18 129/82 (98) 99 Room Air 01/11/18 19:27 96 18 97 Room Air 01/11/18 16:00 Room Air 01/11/18 15:55 36.8 84 16 119/74 (89) 100 Room Air 01/11/18 15:34 84 20 98 Room Air 01/11/18 11:54 36.3 84 20 122/81 (95) 94 01/11/18 11:08 Room Air 01/11/18 11:04 81 20 98 Room Air 01/11/18 08:00 Room Air 01/11/18 07:48 36.6 81 18 119/78 (92) 97 01/11/18 07:27 79 20 100 Room Air 01/11/18 04:12 Room Air 01/11/18 03:42 36.7 83 20 112/73 (86) 98 Room Air 01/11/18 00:37 Room Air 01/10/18 23:46 36.4 93 20 114/68 (83) 95 Room Air Physical Exam General Appearance: no apparent distress, + pertinent finding (coughing) ENT: pharynx normal Neck: + JVD (about 1/[address] up neck) Respiratory/Chest: no respiratory distress, no accessory muscle use, + decreased breath sounds (right base), + rales (focal, fine rales, LLL), + wheezing (b/l ) Cardiovascular: regular rate, rhythm, no gallop, + systolic murmur (1-2/6 LSB) Abdomen: normal bowel sounds, non tender, soft, no organomegaly Extremities: no pedal edema Neurologic/Psychiatric: alert, oriented x 3 Laboratory Results Last 24 Hours Test 01/11/18 02:59 01/11/18 07:06 Sodium Level 137 mmol/L Potassium Level 4.3 mmol/L Chloride Level 112 mmol/L Carbon Dioxide Level 16 mmol/L Anion Gap 9.0 mmol/L Blood Urea Nitrogen 55 mg/dl Creatinine 4.82 mg/dl Est Creatinine Clear Calc Drug Dose 14.5 ml/min Estimated GFR () 13.5 Estimated GFR (Non- 11.7 BUN/Creatinine Ratio 11.4 Random Glucose 133 mg/dl Calcium Level 7.7 mg/dl Magnesium Level 2.1 mg/dl Total Bilirubin 0.2 mg/dl Aspartate Amino Transf (AST/SGOT) 8 U/L Alanine Aminotransferase (ALT/SGPT) 8 U/L Alkaline Phosphatase 59 U/L Troponin I 0.302 ng/ml Total Protein 6.0 gm/dl Albumin 2.3 gm/dl Globulin 3.7 gm/dl Albumin/Globulin Ratio 0.6 White Blood Count 5.08 K/uL Red Blood Count 3.53 M/uL Hemoglobin 10.6 g/dL Hematocrit 34.0 % Mean Corpuscular Volume 96.3 fL Mean Corpuscular Hemoglobin 30.0 pg Mean Corpuscular Hemoglobin Concent 31.2 g/dl Platelet Count 346 K/uL Mean Platelet Volume 9.8 fL Neutrophils (%) (Auto) 71.4 % Lymphocytes (%) (Auto) 16.5 % Monocytes (%) (Auto) 7.7 % Eosinophils (%) (Auto) 2.8 % Basophils (%) (Auto) 1.0 % Neutrophils # (Auto) 3.63 K/uL Lymphocytes # (Auto) 0.84 K/uL Monocytes # (Auto) 0.39 K/uL Eosinophils # (Auto) 0.14 K/uL Basophils # (Auto) 0.05 K/uL RDW Standard Deviation 56.7 fL RDW Coefficient of Variation 16.0 % Immature Granulocyte % (Auto) 0.6 % Immature Granulocyte # (Auto) 0.03 K/uL Poikilocytosis PRESENT Echinocytes 1+ Lactic Acid Level 1.4 mmol/L Assessment and Plan 67yo male - 1. LLL pneumonia - remains on aztreonam/doxycycline. Pneumonia confirmed with chest CT. Hemodynamically stable, afebrile. Cont current antibiotics; likely can transition to orals next 1-2 days. Blood cx's thus far neg. 2. reactive bronchitis 2nd to #1 - significant wheezing on exam - cont nebs; add mucinex BID; incentive liya; prednisone 60mg today and tomorrow then start wean. No prior h/o formally-dx chronic lung disease although has prior tobacco use. 3. CKD stage 5 - minimal creatinine elevation above baseline. s/p 1 L of fluids overnight; stop fluids; Creatinine is actually the best it has been since 09/2017. BMP am. 4. chronic systolic CHF - EF 20-25% - compensated. Stop fluids. Cont BB low- dose. 5. CAD - despite known CAD, his chest symptoms were likely from #1 and #2 and not ischemic in nature. Mild troponin elevation either 2nd to CKD stage 5 or from myocardial demand ischemia in setting of #1. Repeat troponin in AM. Cont plavix. 6. h/o T2DM - last hemoglobin a1c was nearly 5%. Glucoses on lab work acceptable. 7. BPH - noted. Cont finasteride. 8. h/o PAF - noted; tele thus far normal. 9. DVT proph - heparin 5000 BID. 10. ? otitis externa - left ear - cont ciprodex. 11. groundglass nodule, right lung, seen on chest CT - f/u chest CT advised 6 months; should enroll in pulmonary nodule program at [facility]. Patient made aware of nodule. PT, OT evals requested to ensure safe return to home when medically stable Continued [facility] stay due to: multiple IV medications needed Discharge planning: home
[2018-01-11] MEDS: ALPRAZOLAM 0.25 MG TAB PO SCH (20:58)
[2018-01-11 21:51] LABS: INR 1.1 (0.9-1.1); PTT PATIENT 29.4 SECONDS (21.0-31.0)
[2018-01-11] MEDS: HEPARIN SOD 5000 UNIT/0.5 ML CARP SQ SCH (22:41)
[2018-01-12] VITALS (14 sets, daily range): BP systolic 99–135; BP diastolic 73–85; PULSE 87–99; TEMP 36.3–36.6; O2SAT 95–100
[2018-01-12] MEDS: CIPRO 0.3%/DEXAMETHASONE 0.1% OTIC SUSP 7.5ML OTL SCH ×4 (03:42→20:44)
[2018-01-12] MEDS: DOXYCYCLINE IV 100 MG in DEXTROSE 5% 100ML 100 ML IV SCH ×2 (03:42→16:18)
[2018-01-12] MEDS: ALBUT/IPRATROP 3MG/0.5MG NEB 3 ML VIAL INH SCH ×4 (07:12→19:43)
[2018-01-12 07:40] LABS: HEMATOCRIT 36.5 % (42-52); HEMOGLOBIN 11.5 g/dL (14.0-18.0); MEAN CELL VOLUME 96.8 fL (80-100); MEAN CORPUSCULAR HEMOGLOBIN 30.5 pg (25-34); MEAN CORPUSCULAR HGB CONC 31.5 g/dl (32-36); NUCLEATED RED BLOOD CELL ABS 0.02 K/uL (0-0); PLATELET COUNT 375 K/uL (130-400); RED CELL DISTRIBUTION WIDTH CV 16.1 % (11.5-14.5); RED CELL DISTRIBUTION WIDTH SD 56.8 fL (36.4-46.3)
[2018-01-12] MEDS: CLOPIDOGREL BISULFATE 75 MG TAB PO SCH (08:14)
[2018-01-12] MEDS: PANTOprazole SOD 40 MG TAB PO SCH (08:15)
[2018-01-12] MEDS: CALCITRIOL 0.25 MCG CAP PO SCH (08:16)
[2018-01-12] MEDS: TRAMADOL HCL 50 MG TAB PO SCH ×2 (08:16→20:43)
[2018-01-12] MEDS: GUAIFENESIN 600 MG TABCR PO SCH ×2 (08:16→20:45)
[2018-01-12 08:19] LABS: CREATININE 5.19 mg/dl (0.60-1.40); POTASSIUM 5.2 mmol/L (3.5-5.1)
[2018-01-12] MEDS ORDERED: SODIUM POLYST. SULF SUSP 15G/60ML PO STA (08:39)
[2018-01-12] MEDS: AZTREONAM IV 1,000 MG in DEXTROSE 5% 100ML 100 ML IV SCH ×4 (09:16→16:18)
[2018-01-12] MEDS: HEPARIN SOD 5000 UNIT/0.5 ML CARP SQ SCH ×2 (11:45→21:30)
--- NOTE | 2018-01-12 12:54 | Nephrology Consultation ---
Nephrology Consultation Date & Providers Date of Consultation: Jan 12, 2018. Primary Care Provider: Jesus Maravilla M.D. Referring Provider: Reason for Consultation Evaluation management for stage 5 chronic kidney disease, hyperkalemia and metabolic acidosis. History of Present Illness Mr. Miranda is a 67-year-old gentlemen with past medical history significant for stage 5 chronic kidney disease, hypertension, diabetes CHF with systolic dysfunction and cardiomyopathy admitted to the hospital with pneumonia. Nephrologic consult was requested to manage advanced CKD with hyperkalemia and metabolic acidosis. Electronic medical records including labs and imaging are reviewed in detail during patient's visit. His kidney was at bedside during the visit. Mr. Miranda was admitted to the hospital 3 days ago with left lower no pneumonia , currently being treated with aztreonam and doxycycline. Clinically seems to be improving, blood culture was negative, he remained afebrile, cough improving. Mr. Miranda has advanced stage 4/5 chronic kidney disease secondary to microvascular disease with history of hypertension, diabetes and cardiomyopathy ( EF 20%). Dr. Hawkins is his primary anesthesiology tech who has been monitoring his renal function closely over last several years, he has a matured AV fistula or ready to be used. His baseline creatinine has been around 3.8-4 until September however, lately renal function has been progressively worsening, creatinine was 5.4 on 11/29/2017, progressively worsened to 6.1 on 01/03/2018, staying stable during hospital course around 5.2. He has stigmata of chronic advanced CKD including anemia, secondary hyperparathyroidism and metabolic acidosis. He has been on Procrit as an outpatient. His appetite has been poor and has been losing weight over last few months, although currently appetite slightly better and he thinks it is because of the high dose prednisone. Denies any nausea, abdominal pain or diarrhea. Has been non-oliguric, however over last few days noticed decrease in urine output. Blood pressure has been well controlled, no significant lower extremity edema or worsening shortness of breath. Allergies Coded Allergies: BEE STING (Verified Allergy, Severe, ANAPHYLAXIS, 11/28/16) Penicillins (Verified Allergy, Severe, Anaphylaxis, OK to receive Invanz per Dr. [place], 11/28/16) Per RN Vancomycin (Verified Allergy, Severe, anaphylaxis, 11/28/16) Adhesives (Verified Allergy, Unknown, TAPE, 11/28/16) Inpatient Medications Current Inpatient Medications Medications (Trade) Dose Ordered Sig/Vilma Route Start Time Stop Time Status Last Admin Dose Admin Acetaminophen (Tylenol Tab) 650 mg Q4H PRN PO 01/10/18 16:45 02/09/18 16:44 Al Hydrox/Mg Hydrox/Simethicone (Maalox Max Susp) 15 ml Q4H PRN PO 01/10/18 16:45 02/09/18 16:44 Magnesium Hydroxide (Milk Of Magnesia Susp) 30 ml Q12H PRN PO 01/10/18 16:45 02/09/18 16:44 Ondansetron HCl (Zofran Inj) 4 mg Q6H PRN IV 01/10/18 16:45 02/09/18 16:44 Polyethylene (Miralax Powder Packet) 17 gm DAILY PRN PO 01/10/18 16:45 02/09/18 16:44 Alprazolam (Xanax Tab) 0.5 mg HS PO 01/10/18 21:00 02/09/18 20:59 01/11/18 20:58 0.5 MG Clopidogrel Bisulfate (plAVix TAB) 75 mg DAILY PO 01/11/18 09:00 02/10/18 08:59 01/12/18 08:14 75 MG Finasteride (Proscar Tab) 5 mg Q2D PO 01/11/18 09:00 02/10/18 08:59 01/11/18 07:39 5 MG Metoprolol Succinate (Toprol Xl Tab) 12.5 mg HS PO 01/10/18 21:00 02/09/18 20:59 01/11/18 20:54 12.5 MG Nitroglycerin (Nitrostat Tab) 0.4 mg UD PRN SL 01/10/18 16:45 02/09/18 16:44 Pantoprazole Sodium (Protonix Tab) 40 mg DAILY PO 01/11/18 09:00 02/10/18 08:59 01/12/18 08:15 40 MG Tramadol HCl (Ultram Tab) 50 mg BID PO 01/10/18 21:00 02/09/18 20:59 01/12/18 08:16 50 MG Calcitriol (Rocaltrol Cap) 0.5 mcg DAILY PO 01/11/18 09:00 02/10/18 08:59 01/12/18 08:16 0.5 MCG Artificial Tears (Artificial Tears) 2 drops Q1H PRN OP 01/10/18 16:45 02/09/18 16:44 Albuterol/ Ipratropium (Duoneb) 3 ml QIDR INH 01/10/18 20:00 02/09/18 19:59 01/12/18 07:12 3 ML Doxycycline Hyclate 100 mg/ Dextrose 110 ml @ 50 mls/hr Q12H IV 01/11/18 04:00 01/17/18 15:59 01/12/18 03:42 50 MLS/HR Aztreonam 1000 mg/ Dextrose 110 ml @ 100 mls/hr Q8H IV 01/11/18 00:00 01/18/18 15:59 01/12/18 09:16 100 MLS/HR Ciprofloxacin/ Dexamethasone (Ciprodex Otic Susp) 2 drops Q6H OTL 01/10/18 21:00 02/09/18 20:59 01/12/18 08:17 2 DROPS Guaifenesin (Mucinex Contr Rel Tab) 1,200 mg Q12 PO 01/11/18 15:00 02/10/18 14:59 01/12/18 08:16 1,200 MG Prednisone (PredniSONE TAB) 60 mg QAM PO 01/12/18 09:00 02/11/18 08:59 01/12/18 08:15 60 MG Heparin Sodium (Porcine) (Heparin Sq 5000 Unit/0.5ml) 5,000 unit Q12H SQ 01/11/18 22:00 02/10/18 21:59 01/11/18 22:41 5,000 UNIT Family History Heart disease Kidney disease (His Brother had renal failure but etiology not known) Social History Smoking Status: Former Smoker Drug Use: none Marital Status: Housing Status: lives with family Review of Systems A complete review of systems was performed. Pertinent positives are noted above. All other systems are negative. Physical Exam Date Time Temp Pulse Resp B/P (MAP) Pulse Ox O2 Delivery O2 Flow Rate FiO2 01/12/18 08:16 Room Air 01/12/18 07:35 36.4 90 18 129/85 (100) 100 01/12/18 07:12 88 18 96 Room Air 3/25/18 04:00 99 Room Air 01/12/18 03:47 36.4 91 18 116/73 (87) 99 01/12/18 00:00 100 Room Air 01/11/18 23:35 36.6 98 20 113/73 (86) 100 Room Air 01/11/18 20:00 99 Room Air 01/11/18 19:34 36.6 97 18 129/82 (98) 99 Room Air 01/11/18 19:27 96 18 97 Room Air 01/11/18 16:00 Room Air 01/11/18 15:55 36.8 84 16 119/74 (89) 100 Room Air 01/11/18 15:34 84 20 98 Room Air 01/11/18 11:54 36.3 84 20 122/81 (95) 94 01/11/18 11:08 Room Air 01/11/18 11:04 81 20 98 Room Air GENERAL: Middle-aged male, AAA x 3, pleasant, cachectic and ill-appearing, pale, not in any distress. HEENT: Atraumatic, normocephalic. NECK: Supple, no JVD, no carotid bruit appreciated. ENT: No sinus tenderness MOUTH and THROAT: Moist oral mucosa, no oral ulcer or pharyngeal erythema RESPIRATORY: Normal breathing efforts, no accessory muscle use, clear to auscultation bilaterally, no wheezes or rales. CARDIOVASCULAR: S1, S2 normal, rate rhythm regular. ABDOMEN: Soft, nontender, positive bowel sound. MUSCULOSKELETAL: No CVA tenderness. No joint swelling, erythema or tenderness. Normal range of motion. SKIN: No skin rash EXTREMITY: No lower extremity edema, left radiocephalic AV fistula with small aneurysm, has decent thrill and bruit. NEURO: No gross focal neurological deficit, speech fluent. PSYCHIATRY: Normal mood and judgment Laboratory Results Last 24 Hours Test 01/11/18 21:20 01/12/18 07:17 Prothrombin Time 11.4 SECONDS Prothromb Time International Ratio 1.1 Activated Partial Thromboplast Time 29.4 SECONDS Partial Thromboplastin Ratio 1.1 White Blood Count 2.60 K/uL Red Blood Count 3.77 M/uL Hemoglobin 11.5 g/dL Hematocrit 36.5 % Mean Corpuscular Volume 96.8 fL Mean Corpuscular Hemoglobin 30.5 pg Mean Corpuscular Hemoglobin Concent 31.5 g/dl RDW Standard Deviation 56.8 fL RDW Coefficient of Variation 16.1 % Platelet Count 375 K/uL Mean Platelet Volume 10.0 fL Nucleated RBC Absolute Count (auto) 0.02 K/uL Nucleated Red Blood Cells % 1.0 % Sodium Level 136 mmol/L Potassium Level 5.2 mmol/L Chloride Level 109 mmol/L Carbon Dioxide Level 17 mmol/L Anion Gap 10.0 mmol/L Blood Urea Nitrogen 65 mg/dl Creatinine 5.19 mg/dl Est Creatinine Clear Calc Drug Dose 14.1 ml/min Estimated GFR () 12.4 Estimated GFR (Non- 10.7 BUN/Creatinine Ratio 12.5 Random Glucose 162 mg/dl Calcium Level 8.0 mg/dl Troponin I 0.179 ng/ml Impression (1) Chronic kidney disease, stage V (2) Hyperkalemia (3) Metabolic acidosis (4) Secondary hyperparathyroidism (5) Hypertension Nos (6) Hyperphosphatemia (7) Anemia Mr. Miranda is a 67-year-old gentlemen with stage 5 chronic kidney disease, hypertension, diabetes, chronic congestive heart failure admitted to the hospital with pneumonia. He is currently on empiric antibiotic with Aztreonam and doxycycline, clinically seems to be improving, remained afebrile. Renal function seems to be progressively worsening creatinine lately has been staying around 5.2-5.4, developed hyperkalemia and metabolic acidosis. He has anemia and secondary hyperparathyroidism. For over last few days urine output seems to be declining however blood pressure and volume status remain acceptable. Overall he feels fatigue, has loss of appetite. Recommendations --start on sodium bicarbonate 650 milligram twice a day --continue on calcitriol, check phosphate if elevated will start on phosphate binder --start on Venofer --continue on potassium restricted diet --discussed in detail that his GFR currently extremely low and we are seeing all stigmata of end-stage renal disease and starting on dialysis probably will have significant positive effect on his overall health and well-being however there is no emergency need to start him on dialysis right this minute. Will try to the correct electrolyte abnormality with medication and monitor clinical status while he is in hospital. If there is no urgent need for dialysis, will wait and continue to manage medically. Has follow-up appointment with Dr. Hawkins next Saturday. Will follow Thank you for allowing me to participate in your patient's care. It was a pleasure to see Mr. Miranda
[2018-01-12] MEDS ORDERED: IRON SUCROSE INJ 200 MG in SODIUM CHLORIDE 0.9% 100ML 100 ML IV SCH (16:00)
--- NOTE | 2018-01-12 18:22 | Progress Note ---
Subjective Date of Service: Jan 12, 2018. Subjective Pt evaluation today including: conversation w/ patient, conversation w/ family ( at bedside), physical exam, chart review, lab review, conversation w/ design and sales consultant (nephrology), review of inpatient medication list Pain: denies PO Intake: eating well tele stable overnight reports that about 6 weeks ago he had severe chest pain that radiated to both arms he did not have nitro and thus took none he thought it was GI-related at the time has not had these type of symptoms since then cough remains but it is nonproductive denies dyspnea Problem List Medical Problems: (1) Head injury Status: Acute (2) Hyperkalemia Status: Acute (3) Intertrochanteric fracture of left hip Status: Acute (4) Renal insufficiency Status: Acute (5) Syncope Status: Acute Review of Systems Constitutional: + fatigue, No fever Respiratory: + cough, + wheezing, No sputum, No dyspnea at rest Cardiac: No chest pain Abdomen: No pain Objective Vital Signs Date Time Temp Pulse Resp B/P (MAP) Pulse Ox O2 Delivery O2 Flow Rate FiO2 01/12/18 15:30 Room Air 01/12/18 15:30 36.6 99 22 131/85 (100) 96 Room Air 01/12/18 14:49 87 18 96 Room Air 01/12/18 11:45 Room Air 01/12/18 11:12 90 18 95 Room Air 01/12/18 11:07 36.4 91 18 120/82 (95) 98 01/12/18 08:16 Room Air 01/12/18 07:35 36.4 90 18 129/85 (100) 100 01/12/18 07:12 88 18 96 Room Air 01/12/18 04:00 99 Room Air 01/12/18 03:47 36.4 91 18 116/73 (87) 99 01/12/18 00:00 100 Room Air 01/11/18 23:35 36.6 98 20 113/73 (86) 100 Room Air 01/11/18 20:00 99 Room Air 01/11/18 19:34 36.6 97 18 129/82 (98) 99 Room Air 01/11/18 19:27 96 18 97 Room Air Physical Exam General Appearance: no apparent distress ENT: pharynx normal Neck: + JVD (1/2 way up neck ) Respiratory/Chest: no respiratory distress, no accessory muscle use, + rales ( focal, left base), + wheezing (b/l ) Cardiovascular: regular rate, rhythm, no gallop Abdomen: normal bowel sounds, non tender, soft, no organomegaly Extremities: no pedal edema Neurologic/Psychiatric: alert, oriented x 3 Skin: + pertinent finding (fistula, left arm, with bruit) Laboratory Results Last 24 Hours Test 01/11/18 21:20 01/12/18 07:17 Prothrombin Time 11.4 SECONDS Prothromb Time International Ratio 1.1 Activated Partial Thromboplast Time 29.4 SECONDS Partial Thromboplastin Ratio 1.1 White Blood Count 2.60 K/uL Red Blood Count 3.77 M/uL Hemoglobin 11.5 g/dL Hematocrit 36.5 % Mean Corpuscular Volume 96.8 fL Mean Corpuscular Hemoglobin 30.5 pg Mean Corpuscular Hemoglobin Concent 31.5 g/dl RDW Standard Deviation 56.8 fL RDW Coefficient of Variation 16.1 % Platelet Count 375 K/uL Mean Platelet Volume 10.0 fL Nucleated RBC Absolute Count (auto) 0.02 K/uL Nucleated Red Blood Cells % 1.0 % Sodium Level 136 mmol/L Potassium Level 5.2 mmol/L Chloride Level 109 mmol/L Carbon Dioxide Level 17 mmol/L Anion Gap 10.0 mmol/L Blood Urea Nitrogen 65 mg/dl Creatinine 5.19 mg/dl Est Creatinine Clear Calc Drug Dose 14.1 ml/min Estimated GFR () 12.4 Estimated GFR (Non- 10.7 BUN/Creatinine Ratio 12.5 Random Glucose 162 mg/dl Calcium Level 8.0 mg/dl Troponin I 0.179 ng/ml Assessment and Plan 67yo male - 1. LLL pneumonia - remains on aztreonam/doxycycline. Pneumonia confirmed with chest CT. Hemodynamically stable, afebrile. Cont current antibiotics; likely can transition to orals next 1-2 days. Blood cx's thus far neg. Day #3 of antibiotics. 2. reactive bronchitis 2nd to #1 - day #2 of prednisone. Can start wean tomorrow to 50mg x 2 days, then 40mg x 2 days, and so forth. Cont mucinex, duonebs, etc. 3. CKD stage 5 - appreciate nephrology consultation. Daily BMP. Kayexalate 15gm x 1 for mild hyperkalemia. Sodium bicarb added by nephrology along with IV iron. Has AV fistula in place just in case HD is needed in future. 4. chronic systolic CHF - EF 20-25% - compensated. Cont BB low-dose. 5. CAD - mild troponin elevation either 2nd to CKD stage 5 or from myocardial demand ischemia in setting of #1. Repeat troponin improved today. Cont plavix. EKG with lateral ST segment depressions - present since 2016 - but mildly worse. Very poor candidate for cath. Cont BB. 6. h/o T2DM - last hemoglobin a1c was nearly 5%. Glucoses on lab work acceptable. 7. BPH - noted. Cont finasteride. 8. h/o PAF - noted; tele thus far normal. 9. DVT proph - heparin 5000 BID. 10. ? otitis externa - left ear - cont ciprodex. 11. groundglass nodule, right lung, seen on chest CT - f/u chest CT advised 6 months; should enroll in pulmonary nodule program at [facility]. PT, OT evals requested to ensure safe return to home when medically stable updated at bedside Continued [facility] stay due to: multiple IV medications needed Discharge planning: home
[2018-01-12] MEDS: ALPRAZOLAM 0.25 MG TAB PO SCH (20:44)
[2018-01-12] MEDS: METOPROLOL SUCC 25MG EXT REL TAB PO SCH (20:46)
[2018-01-12] MEDS ORDERED: SODIUM BICARBONATE 650 MG TAB PO SCH (21:00)
[2018-01-13] VITALS (13 sets, daily range): BP systolic 117–132; BP diastolic 75–86; PULSE 80–102; TEMP 36.2–36.6; O2SAT 96–100
[2018-01-13] MEDS: AZTREONAM IV 1,000 MG in DEXTROSE 5% 100ML 100 ML IV SCH ×3 (00:01→16:00)
[2018-01-13] MEDS: CIPRO 0.3%/DEXAMETHASONE 0.1% OTIC SUSP 7.5ML OTL SCH ×4 (03:21→20:37)
[2018-01-13] MEDS: DOXYCYCLINE IV 100 MG in DEXTROSE 5% 100ML 100 ML IV SCH ×2 (03:22→16:02)
[2018-01-13] MEDS: ALBUT/IPRATROP 3MG/0.5MG NEB 3 ML VIAL INH SCH ×4 (06:56→19:39)
[2018-01-13 06:57] LABS: HEMATOCRIT 35.4 % (42-52); HEMOGLOBIN 11.1 g/dL (14.0-18.0); MEAN CELL VOLUME 95.7 fL (80-100); MEAN CORPUSCULAR HGB CONC 31.4 g/dl (32-36); NUCLEATED RED BLOOD CELL ABS 0.02 K/uL (0-0); PLATELET COUNT 322 K/uL (130-400); RED CELL DISTRIBUTION WIDTH CV 16.1 % (11.5-14.5); RED CELL DISTRIBUTION WIDTH SD 55.8 fL (36.4-46.3)
[2018-01-13 07:43] LABS: CALCIUM 8.2 mg/dl (8.5-10.1); CREATININE 5.01 mg/dl (0.60-1.40); PHOSPHORUS 5.4 mg/dl (2.5-4.9); POTASSIUM 4.2 mmol/L (3.5-5.1)
[2018-01-13] MEDS ORDERED: CALCIUM CARBONATE 500 MG CHEWABLE PO PRN (08:30)
[2018-01-13] MEDS: FINASTERIDE 5 MG TAB PO SCH (08:35)
[2018-01-13] MEDS: CLOPIDOGREL BISULFATE 75 MG TAB PO SCH (08:36)
[2018-01-13] MEDS: PANTOprazole SOD 40 MG TAB PO SCH (08:36)
[2018-01-13] MEDS: CALCITRIOL 0.25 MCG CAP PO SCH (08:36)
[2018-01-13] MEDS: GUAIFENESIN 600 MG TABCR PO SCH ×2 (08:37→20:37)
[2018-01-13] MEDS: TRAMADOL HCL 50 MG TAB PO SCH ×2 (08:45→20:39)
[2018-01-13] MEDS: HEPARIN SOD 5000 UNIT/0.5 ML CARP SQ SCH ×2 (08:45→22:46)
[2018-01-13] MEDS: SODIUM BICARBONATE 650 MG TAB PO SCH ×2 (09:37→20:37)
--- NOTE | 2018-01-13 12:28 | Nephrology Progress Note ---
Nephrology Progress Note Date of Service Jan 13, 2018. Chief Complaint F/U for stage 5 chronic kidney disease, hyperkalemia and metabolic acidosis. Subjective Mr. Miranda Was seen and examined in his room this morning. Renal function remained stable urine output continues to be relatively low, but volume status acceptable. Hyperkalemia resolved, continues to have other electrolyte abnormalities including metabolic acidosis. Blood pressure stable. Review of Systems A complete review of systems was performed. Pertinent positives are noted above. All other systems are negative. Vital Signs Last 8 Hrs Date Time Temp Pulse Resp B/P (MAP) Pulse Ox O2 Delivery O2 Flow Rate FiO2 01/13/18 07:38 36.4 92 20 127/84 (98) 100 Room Air 01/13/18 07:08 80 18 100 Room Air 01/13/18 04:06 36.6 92 18 125/79 (94) 100 Room Air 01/13/18 04:00 100 Room Air Last Recorded Weight Weight (Kilograms): 71.200 Physical Exam GENERAL: Middle-aged male, AAA x 3, pleasant, thin built, not in any distress. NECK: Supple, no JVD. RESPIRATORY: Normal breathing efforts, no accessory muscle use, clear to auscultation bilaterally, no wheezes or rales. CARDIOVASCULAR: S1, S2 normal, rate rhythm regular. EXTREMITY: No lower extremity edema NEURO: speech fluent. PSYCHIATRY: Normal mood and judgment Family History Heart disease Kidney disease (His Brother had renal failure but etiology not known) Social History Drug Use: none Marital Status: Housing Status: lives with family Laboratory Results Past 24 Hours 01/13/18 06:38 01/13/18 06:38 Test 01/13/18 00:10 01/13/18 06:38 Stool Occult Blood POSITIVE (NEGATIVE) Red Blood Count 3.70 M/uL (4.7-6.1) Mean Corpuscular Volume 95.7 fL (80-100) Mean Corpuscular Hemoglobin 30.0 pg (25-34) Mean Corpuscular Hemoglobin Concent 31.4 g/dl (32-36) RDW Standard Deviation 55.8 fL (36.4-46.3) RDW Coefficient of Variation 16.1 % (11.5-14.5) Mean Platelet Volume 10.0 fL (7.4-10.4) Nucleated RBC Absolute Count (auto) 0.02 K/uL (0-0) Nucleated Red Blood Cells % 0.2 % Anion Gap 12.0 mmol/L (3-11) Est Creatinine Clear Calc Drug Dose 14.6 ml/min Estimated GFR () 12.9 Estimated GFR (Non- 11.1 BUN/Creatinine Ratio 13.1 (10-20) Calcium Level 8.2 mg/dl (8.5-10.1) Phosphorus Level 5.4 mg/dl (2.5-4.9) Allergies Coded Allergies: BEE STING (Verified Allergy, Severe, ANAPHYLAXIS, 11/28/16) Penicillins (Verified Allergy, Severe, Anaphylaxis, OK to receive Invanz per Dr. [place], 11/28/16) Per RN Vancomycin (Verified Allergy, Severe, anaphylaxis, 11/28/16) Adhesives (Verified Allergy, Unknown, TAPE, 11/28/16) Medications Current Inpatient Medications Medications (Trade) Dose Ordered Sig/Vilma Route Start Time Stop Time Status Last Admin Dose Admin Acetaminophen (Tylenol Tab) 650 mg Q4H PRN PO 01/10/18 16:45 02/09/18 16:44 Al Hydrox/Mg Hydrox/Simethicone (Maalox Max Susp) 15 ml Q4H PRN PO 01/10/18 16:45 02/09/18 16:44 Magnesium Hydroxide (Milk Of Magnesia Susp) 30 ml Q12H PRN PO 01/10/18 16:45 02/09/18 16:44 Ondansetron HCl (Zofran Inj) 4 mg Q6H PRN IV 01/10/18 16:45 02/09/18 16:44 Polyethylene (Miralax Powder Packet) 17 gm DAILY PRN PO 01/10/18 16:45 02/09/18 16:44 Alprazolam (Xanax Tab) 0.5 mg HS PO 01/10/18 21:00 02/09/18 20:59 01/12/18 20:44 0.5 MG Clopidogrel Bisulfate (plAVix TAB) 75 mg DAILY PO 01/11/18 09:00 02/10/18 08:59 01/12/18 08:14 75 MG Finasteride (Proscar Tab) 5 mg Q2D PO 01/11/18 09:00 02/10/18 08:59 01/11/18 07:39 5 MG Metoprolol Succinate (Toprol Xl Tab) 12.5 mg HS PO 01/10/18 21:00 02/09/18 20:59 01/12/18 20:46 12.5 MG Nitroglycerin (Nitrostat Tab) 0.4 mg UD PRN SL 01/10/18 16:45 02/09/18 16:44 Pantoprazole Sodium (Protonix Tab) 40 mg DAILY PO 01/11/18 09:00 02/10/18 08:59 01/12/18 08:15 40 MG Tramadol HCl (Ultram Tab) 50 mg BID PO 01/10/18 21:00 02/09/18 20:59 01/12/18 20:43 50 MG Calcitriol (Rocaltrol Cap) 0.5 mcg DAILY PO 01/11/18 09:00 02/10/18 08:59 01/12/18 08:16 0.5 MCG Artificial Tears (Artificial Tears) 2 drops Q1H PRN OP 01/10/18 16:45 02/09/18 16:44 Albuterol/ Ipratropium (Duoneb) 3 ml QIDR INH 01/10/18 20:00 02/09/18 19:59 01/13/18 06:56 3 ML Doxycycline Hyclate 100 mg/ Dextrose 110 ml @ 50 mls/hr Q12H IV 01/11/18 04:00 01/17/18 15:59 01/13/18 03:22 50 MLS/HR Aztreonam 1000 mg/ Dextrose 110 ml @ 100 mls/hr Q8H IV 01/11/18 00:00 01/18/18 15:59 01/13/18 00:01 100 MLS/HR Ciprofloxacin/ Dexamethasone (Ciprodex Otic Susp) 2 drops Q6H OTL 01/10/18 21:00 02/09/18 20:59 01/13/18 03:21 2 DROPS Guaifenesin (Mucinex Contr Rel Tab) 1,200 mg Q12 PO 01/11/18 15:00 02/10/18 14:59 01/12/18 20:45 1,200 MG Heparin Sodium (Porcine) (Heparin Sq 5000 Unit/0.5ml) 5,000 unit Q12H SQ 01/11/18 22:00 02/10/18 21:59 01/12/18 21:30 5,000 UNIT Sodium Bicarbonate (Sodium Bicarbonate Tab) 650 mg BID PO 01/12/18 21:00 02/11/18 20:59 01/12/18 20:45 650 MG Iron Sucrose 200 mg/Sodium Chloride 110 ml @ 420 mls/hr Q2D@1600 IV 01/12/18 16:00 01/20/18 16:16 01/12/18 15:44 420 MLS/HR Prednisone (PredniSONE TAB) 50 mg QAM PO 01/13/18 09:00 02/11/18 08:59 Impression (1) Chronic kidney disease, stage V (2) Hyperkalemia (3) Metabolic acidosis (4) Secondary hyperparathyroidism (5) Hypertension Nos (6) Hyperphosphatemia (7) Anemia Mr. Miranda is a 67-year-old gentlemen with stage 5 chronic kidney disease, hypertension, diabetes, chronic congestive heart failure admitted to the hospital with pneumonia. He is currently on empiric antibiotic with Aztreonam and doxycycline, clinically seems to be improving, remained afebrile. Renal function seems to be progressively worsening creatinine lately has been staying around 5.2-5.4, developed hyperkalemia and metabolic acidosis. He has anemia and secondary hyperparathyroidism. For over last few days urine output seems to be declining however blood pressure and volume status remain acceptable. Overall he feels fatigue, has loss of appetite. Recommendations --increase sodium bicarbonate 650 milligram 2 tab twice a day --continue on calcitriol -- start on Tums 1 tablet with each meal as phosphate binder --continue on Venofer --continue on potassium restricted diet --discussed in detail that his GFR currently extremely low and we are seeing all stigmata of end-stage renal disease and starting on dialysis probably will have significant positive effect on his overall health and well-being however there is no emergency need to start him on dialysis right this minute. Will try to the correct electrolyte abnormality with medication and monitor clinical status while he is in hospital. If there is no urgent need for dialysis, will wait and continue to manage medically. Has follow-up appointment with Dr. Hawkins next Saturday. Will follow
[2018-01-13] MEDS: ALPRAZOLAM 0.25 MG TAB PO SCH (20:38)
[2018-01-13] MEDS: METOPROLOL SUCC 25MG EXT REL TAB PO SCH (20:38)
[2018-01-14] VITALS (7 sets, daily range): BP systolic 121–138; BP diastolic 80–82; PULSE 86–92; TEMP 36.5–36.7; O2SAT 18–100
[2018-01-14] MEDS: AZTREONAM IV 1,000 MG in DEXTROSE 5% 100ML 100 ML IV SCH ×2 (00:25→08:41)
[2018-01-14] MEDS: DOXYCYCLINE IV 100 MG in DEXTROSE 5% 100ML 100 ML IV SCH (03:51)
[2018-01-14] MEDS: CIPRO 0.3%/DEXAMETHASONE 0.1% OTIC SUSP 7.5ML OTL SCH ×2 (03:52→08:30)
--- NOTE | 2018-01-14 05:23 | Progress Note ---
Subjective Date of Service: Jan 14, 2018. Subjective Pt evaluation today including: conversation w/ patient, conversation w/ family ( at bedside), physical exam, chart review, lab review, review of inpatient medication list Pain: denies any PO Intake: improved; only can take small meals due to gastric bypass status tele stable overnight he feels better cough is "breaking up" and he can breathe more easily denies any dyspnea worked with PT today and did well; cleared for home Problem List Medical Problems: (1) Head injury Status: Acute (2) Hyperkalemia Status: Acute (3) Intertrochanteric fracture of left hip Status: Acute (4) Renal insufficiency Status: Acute (5) Syncope Status: Acute Review of Systems Constitutional: No fever Respiratory: No shortness of breath, No dyspnea on exertion Cardiac: No chest pain Abdomen: No pain Objective Vital Signs Date Time Temp Pulse Resp B/P (MAP) Pulse Ox O2 Delivery O2 Flow Rate FiO2 01/14/18 04:00 100 Room Air 01/14/18 03:48 36.7 92 17 138/82 (100) 100 Room Air 01/14/18 00:00 99 Room Air 01/13/18 23:35 36.6 99 17 124/82 (96) 99 Room Air 01/13/18 20:05 36.3 98 20 128/76 (93) 97 Room Air 01/13/18 20:00 97 Room Air 01/13/18 19:41 97 18 96 Room Air 01/13/18 16:00 Room Air 01/13/18 15:37 36.4 101 18 117/75 (89) 100 Room Air 01/13/18 15:22 102 18 100 Room Air 01/13/18 11:50 Room Air 01/13/18 11:12 92 18 99 Room Air 01/13/18 10:51 36.2 95 20 132/86 (101) 98 01/13/18 08:10 Room Air 01/13/18 07:38 36.4 92 20 127/84 (98) 100 Room Air 01/13/18 07:08 80 18 100 Room Air Physical Exam General Appearance: no apparent distress ENT: pharynx normal Neck: no JVD Respiratory/Chest: no respiratory distress, no accessory muscle use, + rales ( focal, left base), + wheezing (much improved today) Cardiovascular: regular rate, rhythm, no gallop Abdomen: normal bowel sounds, non tender, soft, no organomegaly Extremities: no pedal edema Neurologic/Psychiatric: alert, oriented x 3 Laboratory Results Last 24 Hours Test 01/13/18 06:38 01/14/18 04:44 White Blood Count 8.00 K/uL Red Blood Count 3.70 M/uL Hemoglobin 11.1 g/dL Hematocrit 35.4 % Mean Corpuscular Volume 95.7 fL Mean Corpuscular Hemoglobin 30.0 pg Mean Corpuscular Hemoglobin Concent 31.4 g/dl RDW Standard Deviation 55.8 fL RDW Coefficient of Variation 16.1 % Platelet Count 322 K/uL Mean Platelet Volume 10.0 fL Nucleated RBC Absolute Count (auto) 0.02 K/uL Nucleated Red Blood Cells % 0.2 % Sodium Level 135 mmol/L Potassium Level 4.2 mmol/L Chloride Level 107 mmol/L Carbon Dioxide Level 16 mmol/L Anion Gap 12.0 mmol/L Blood Urea Nitrogen 65 mg/dl Creatinine 5.01 mg/dl Est Creatinine Clear Calc Drug Dose 14.6 ml/min Estimated GFR () 12.9 Estimated GFR (Non- 11.1 BUN/Creatinine Ratio 13.1 Random Glucose 110 mg/dl Calcium Level 8.2 mg/dl Phosphorus Level 5.4 mg/dl Assessment and Plan 67yo male - 1. LLL pneumonia - remains on aztreonam/doxycycline. Pneumonia confirmed with chest CT. Hemodynamically stable, afebrile. Day #4/7 of antibiotics. Would change doxy to PO tomorrow am. Aztreonam - change to clindamycin? IM ertapenem? other? Blood cx's thus far neg. 2. reactive bronchitis 2nd to #1 - day #3 of prednisone. Improved. Start prednisone wean. Cont nebs, etc. 3. CKD stage 5 - appreciate nephrology consultation. Daily BMP. Sodium bicarb added by nephrology along with IV iron; former titrated today. Has AV fistula in place just in case HD is needed in future. 4. chronic systolic CHF - EF 20-25% - compensated. Cont BB low-dose. 5. CAD - mild troponin elevation either 2nd to CKD stage 5 or from myocardial demand ischemia in setting of #1 as he did not have typical chest symptoms at presentation. Cont plavix. EKG with lateral ST segment depressions - present since 2016 - but mildly worse. Very poor candidate for cath. Cont BB. 6. h/o T2DM - last hemoglobin a1c was nearly 5%. Glucoses on lab work acceptable. 7. BPH - noted. Cont finasteride. 8. h/o PAF - noted; tele thus far acceptable. 9. DVT proph - heparin 5000 BID. 10. ? otitis externa - left ear - cont ciprodex. 11. groundglass nodule, right lung, seen on chest CT - f/u chest CT advised 6 months; enrolled in pulmonary nodule program at [facility]. PT, OT evals done, cleared for home home tomorrow am? updated Continued [facility] stay due to: multiple IV medications needed Discharge planning: home
[2018-01-14] MEDS: ALBUT/IPRATROP 3MG/0.5MG NEB 3 ML VIAL INH SCH (07:09)
[2018-01-14 07:41] LABS: CALCIUM 8.4 mg/dl (8.5-10.1); CREATININE 4.85 mg/dl (0.60-1.40); POTASSIUM 4.2 mmol/L (3.5-5.1)
[2018-01-14] MEDS: CALCITRIOL 0.25 MCG CAP PO SCH (08:27)
[2018-01-14] MEDS: GUAIFENESIN 600 MG TABCR PO SCH (08:28)
[2018-01-14] MEDS: CLOPIDOGREL BISULFATE 75 MG TAB PO SCH (08:28)
[2018-01-14] MEDS: PANTOprazole SOD 40 MG TAB PO SCH (08:30)
[2018-01-14] MEDS: TRAMADOL HCL 50 MG TAB PO SCH (08:40)
[2018-01-14] MEDS: HEPARIN SOD 5000 UNIT/0.5 ML CARP SQ SCH (08:44)
[2018-01-14] MEDS ORDERED: SODIUM BICARBONATE 650 MG TAB PO SCH (09:00)
[2018-01-14] MEDS ORDERED: SODI650T8 PO (09:52)
[2018-01-14] MEDS ORDERED: PRED10TA PO (09:52)
[2018-01-14] MEDS ORDERED: IPRASOL4 INH (09:52)
[2018-01-14] MEDS ORDERED: DXY100 PO (09:52)
[2018-01-14] MEDS ORDERED: NEBMAC (09:52)
--- NOTE | 2018-01-14 10:09 | Discharge Instructions ---
Discharge Instructions Date of Service Jan 14, 2018. Admission Reason for Admission: Pneumonia Discharge Discharge Diagnosis / Problem: left-sided pneumonia & bronchitis - both improved Discharge Goals Goal(s): Learn about illness, Diagnostic testing, Therapeutic intervention Activity Recommendations Activity Limitations: resume your previous activity (as tolerated ) . Instructions / Follow-Up Instructions / Follow-Up From Dr. Saleh - You were treated for left-sided pneumonia and bronchitis both of which improved nicely while you were here. Your congestive heart failure was stable. We incidentally found a lung nodule on your CAT scan and you will need follow- up for this in the "[facility]." You were seen by Dr. Reed, Dr. Hawkins's partner, from the kidney team. 1. Pneumonia - please complete 5 more days of oral doxycycline 100mg twice daily. Start this TONIGHT. common side effects of doxycycline include reflux/heartburn and a rash if you go out in the sun; be sure to cover up if you get sun exposure this week. 2. Bronchitis - do the following - * prednisone taper - start TOMORROW and take for a total of 4 days; directions will be on bottle * duoneb (albuterol-ipratropium) nebs every 4-6 hours as needed for cough/ wheezing/shortness of breath * you will need to get the neb machine from [facility] * the actual medication was called to your pharmacy for you * you can also take [id number] mucinex and take up to 1200mg twice a day as needed for cough 3. Kidney disease - you have been started on sodium bicarbonate tabs. Take 2 tablets three times a day until Dr. Hawkins tells you otherwise. 4. Please obtain a blood draw for your kidneys on , 01/16/18. 5. Please keep your appointment with Dr. Hawkins on Saturday of this week to discuss whether you will need dialysis soon. 6. The prednisone could cause fluid retention and weight gain. Please monitor your weights daily and if you GAIN MORE THAN 2-3 POUNDS IN 1-2 DAYS PLEASE START YOUR LASIX AND CALL EITHER DR. HAWKINS OR YOUR PHOTOVOLTAIC POWER SYSTEMS ENGINEER. 7. Your stool had traces of blood in it. However your blood counts remained stable during the hospital stay. Please follow-up with Dr. Vj Serrano, [facility], within 4-6 weeks for this. I have provided his office address & phone # for you. 8. Return to [facility] if - * you develop recurrent shortness of breath * you develop recurrent chest pain * you have to take nitroglycerin for chest pain * any other concerns Current Hospital Diet Patient's current hospital diet: Renal Diet Discharge Diet Recommended Diet: Low Sodium Diet (2gm Na), Renal Diet Fluid Restriction: 1500 ml (6 cups) Procedures Procedures Performed: CAT scan of the lungs showing left-sided pneumonia along with a nodule in the right lung. Pending Studies Studies pending at discharge: no Medical Emergencies . Who to Call and When: Medical Emergencies: If at any time you feel your situation is an emergency, please call 911 immediately. . Non-Emergent Contact Non-Emergency issues call your: Client Liaison Call Non-Emergent contact if: temperature is above 100.5, you have any medication questions . . "Provider Documentation" section prepared by Alpesh Saleh. .
--- NOTE | 2018-01-14 10:19 | Nephrology Progress Note ---
Nephrology Progress Note Date of Service Jan 14, 2018. Chief Complaint F/U for stage 5 chronic kidney disease, hyperkalemia and metabolic acidosis. Fely Syed Was seen and examined in his room this morning with his Lori at bedside. Renal function remained stable, cr 4.9, urine output continues to be relatively low, but volume status acceptable. Hyperkalemia resolved, continues to have other electrolyte abnormalities including metabolic acidosis. Blood pressure stable. Review of Systems A complete review of systems was performed. Pertinent positives are noted above. All other systems are negative. Vital Signs Last 8 Hrs Date Time Temp Pulse Resp B/P (MAP) Pulse Ox O2 Delivery O2 Flow Rate FiO2 01/14/18 07:11 87 18 99 Room Air 01/14/18 04:00 100 Room Air 01/14/18 03:48 36.7 92 17 138/82 (100) 100 Room Air Last Recorded Weight Weight (Kilograms): 71.200 Physical Exam GENERAL: Middle-aged male, AAA x 3, pleasant, cachectic and ill-appearing, not in any distress. NECK: Supple, no JVD. RESPIRATORY: Normal breathing efforts, clear to auscultation bilaterally, no wheezes or rales. CARDIOVASCULAR: S1, S2 normal, rate rhythm regular. EXTREMITY: No lower extremity edema NEURO: speech fluent. PSYCHIATRY: Normal mood and judgment Family History Heart disease Kidney disease (His Brother had renal failure but etiology not known) Social History Drug Use: none Marital Status: Housing Status: lives with family Laboratory Results Past 24 Hours 01/14/18 06:00 Test 01/14/18 06:00 Anion Gap 13.0 mmol/L (3-11) Est Creatinine Clear Calc Drug Dose 15.1 ml/min Estimated GFR () 13.4 Estimated GFR (Non- 11.6 BUN/Creatinine Ratio 14.6 (10-20) Calcium Level 8.4 mg/dl (8.5-10.1) Allergies Coded Allergies: BEE STING (Verified Allergy, Severe, ANAPHYLAXIS, 11/28/16) Penicillins (Verified Allergy, Severe, Anaphylaxis, OK to receive Invanz per Dr. [place], 11/28/16) Per RN Vancomycin (Verified Allergy, Severe, anaphylaxis, 11/28/16) Adhesives (Verified Allergy, Unknown, TAPE, 11/28/16) Medications Current Inpatient Medications Medications (Trade) Dose Ordered Sig/Vilma Route Start Time Stop Time Status Last Admin Dose Admin Acetaminophen (Tylenol Tab) 650 mg Q4H PRN PO 01/10/18 16:45 02/09/18 16:44 Al Hydrox/Mg Hydrox/Simethicone (Maalox Max Susp) 15 ml Q4H PRN PO 01/10/18 16:45 02/09/18 16:44 Magnesium Hydroxide (Milk Of Magnesia Susp) 30 ml Q12H PRN PO 01/10/18 16:45 02/09/18 16:44 Ondansetron HCl (Zofran Inj) 4 mg Q6H PRN IV 01/10/18 16:45 02/09/18 16:44 Polyethylene (Miralax Powder Packet) 17 gm DAILY PRN PO 01/10/18 16:45 02/09/18 16:44 Alprazolam (Xanax Tab) 0.5 mg HS PO 01/10/18 21:00 02/09/18 20:59 01/13/18 20:38 0.5 MG Clopidogrel Bisulfate (plAVix TAB) 75 mg DAILY PO 01/11/18 09:00 02/10/18 08:59 01/13/18 08:36 75 MG Finasteride (Proscar Tab) 5 mg Q2D PO 01/11/18 09:00 02/10/18 08:59 01/13/18 08:35 5 MG Metoprolol Succinate (Toprol Xl Tab) 12.5 mg HS PO 01/10/18 21:00 02/09/18 20:59 01/13/18 20:38 12.5 MG Nitroglycerin (Nitrostat Tab) 0.4 mg UD PRN SL 01/10/18 16:45 02/09/18 16:44 Pantoprazole Sodium (Protonix Tab) 40 mg DAILY PO 01/11/18 09:00 02/10/18 08:59 01/13/18 08:36 40 MG Tramadol HCl (Ultram Tab) 50 mg BID PO 01/10/18 21:00 02/09/18 20:59 01/13/18 20:39 50 MG Calcitriol (Rocaltrol Cap) 0.5 mcg DAILY PO 01/11/18 09:00 02/10/18 08:59 01/13/18 08:36 0.5 MCG Artificial Tears (Artificial Tears) 2 drops Q1H PRN OP 01/10/18 16:45 02/09/18 16:44 Albuterol/ Ipratropium (Duoneb) 3 ml QIDR INH 01/10/18 20:00 02/09/18 19:59 01/14/18 07:09 3 ML Aztreonam 1000 mg/ Dextrose 110 ml @ 100 mls/hr Q8H IV 01/11/18 00:00 01/18/18 15:59 01/14/18 00:25 100 MLS/HR Ciprofloxacin/ Dexamethasone (Ciprodex Otic Susp) 2 drops Q6H OTL 01/10/18 21:00 02/09/18 20:59 01/14/18 03:52 2 DROPS Guaifenesin (Mucinex Contr Rel Tab) 1,200 mg Q12 PO 01/11/18 15:00 02/10/18 14:59 01/13/18 20:37 1,200 MG Heparin Sodium (Porcine) (Heparin Sq 5000 Unit/0.5ml) 5,000 unit Q12H SQ 01/11/18 22:00 02/10/18 21:59 01/13/18 22:46 5,000 UNIT Iron Sucrose 200 mg/Sodium Chloride 110 ml @ 420 mls/hr Q2D@1600 IV 01/12/18 16:00 01/20/18 16:16 01/12/18 15:44 420 MLS/HR Prednisone (PredniSONE TAB) 50 mg QAM PO 01/13/18 09:00 02/11/18 08:59 01/13/18 08:35 50 MG Calcium Carbonate (Tums Chew Tab) 500 mg AC PRN PO 01/13/18 08:30 02/12/18 08:29 Doxycycline Hyclate (Vibramycin Cap) 100 mg BID PO 01/14/18 21:00 01/21/18 20:59 Sodium Bicarbonate (Sodium Bicarbonate Tab) 1,300 mg TID PO 01/14/18 09:00 02/11/18 20:59 UNV Impression (1) Chronic kidney disease, stage V (2) Hyperkalemia (3) Metabolic acidosis (4) Secondary hyperparathyroidism (5) Hypertension Nos (6) Hyperphosphatemia (7) Anemia Mr. Miranda is a 67-year-old gentlemen with stage 5 chronic kidney disease, hypertension, diabetes, chronic congestive heart failure admitted to the hospital with pneumonia. He is currently on empiric antibiotic with Aztreonam and doxycycline, clinically seems to be improving, remained afebrile. Renal function seems to be progressively worsening creatinine lately has been staying around 5.2-5.4, developed hyperkalemia and metabolic acidosis. He has anemia and secondary hyperparathyroidism. For over last few days urine output seems to be declining however blood pressure and volume status remain acceptable. Overall he feels fatigue, has loss of appetite. Recommendations --increase sodium bicarbonate 650 milligram 2 tab 3 times a day --continue on calcitriol and Tums 1 tablet with each meal as phosphate binder --continue on Venofer --continue on potassium restricted diet --OK to be discharged --will order lab for prior to hid F/U with Dr. Hawkins on Saturday Will follow
[2018-01-14] MEDS ORDERED: DOXYCYCLINE HYCLATE 100 MG CAP PO SCH (21:00)
--- NOTE | 2018-01-15 09:02 | Discharge Summary ---
Discharge Summary Date of Service Jan 15, 2018. Discharge Summary Admission Date: Jan 10, 2018 at 16:38 Discharge Date: Jan 14, 2018 Discharge Disposition: Home Principal Diagnosis: LLL community-acquired pneumonia Problems/Secondary Diagnoses: 1. acute bronchitis - resolving 2. chronic systolic CHF 3. CKD Stage V 4. CAD S/P MN and PCI 5. Anemia of Chronic Disease 6. past h/o T2DM 7. BPH 8. Hyperparathyroidism 9. HTN 10. Paroxysmal Atrial Fibrillation/SVT 11. H/O Gastric Bypass Surgery 12. hyperlipidemia 13. heme positive stool - outpatient f/u with Dr. Serrano recommended 14. positive troponin - either myocardial demand ischemia from pneumonia or due to CKD 15. RML lung nodule - 7mm; f/u advised Immunizations: Have You Had Influenza Vaccine: Unknown Influenza Vaccine Date: Jul 16, 2005 History of Tetanus Vaccine?: Unknown Tetanus Immunization Date: Jan 19, 2006 History of Pneumococcal: Unknown Pneumococcal Date: Jul 16, 2005 History of Hepatitis B Vaccine: Unknown Procedures: CT chest - IMPRESSION: 1. Small parenchymal infiltrate left lower lobe. 2. Small bilateral pleural effusions. 3. 7 mm groundglass nodule peripheral aspect right middle lobe with follow-up per Fleischner criteria. Consultations: nephrology - Carleen Reed MD PT, OT Medication Reconciliation New Medications: Nebulizer Machine (Home Use) (Nebulizer Machine (Home Use) ) Mis EA N/A UD, #1 dx - acute bronchitis Prednisone (Prednisone) 10 Mg Tab 10 MG PO DIRECTED, #10 TAB 0 Refills start 01/15: take 4 tabs day 1, 3 tabs day 2, 2 tabs day 3, 1 tab day 4. Doxycycline Hyclate (Doxycycline Hyclate) 100 Mg Cap 100 MG PO BID for 5 Days, #10 CAP 0 Refills Ipratropium-Albuterol (Duoneb) 3 Ml Nebu 3 ML INH Q6H PRN for cough/wheeze, #1 BOX 1 Refill dx - acute bronchitis Sodium Bicarbonate (Sodium Bicarbonate) 650 Mg Tab 1300 MG PO TID, #90 TAB 0 Refills Continued Medications: Alprazolam (Alprazolam) 0.25 Mg Tab 0.5 MG PO HS Calcitriol (Calcitriol) 0.5 Mcg Cap 0.5 MCG PO DAILY Clopidogrel Bisulfate (Plavix) 75 Mg Tab 75 MG PO DAILY Epoetin Andrew (Procrit) Unknown Strength Inj 1 DOSE SQ UD Finasteride (Finasteride) 5 Mg Tab 5 MG PO Q2D Furosemide (Furosemide) 20 Mg Tab 20 MG PO DAILY PRN for EDEMA Metoprolol Succinate (Metoprolol Succinate ER) 25 Mg Tabcr 12.5 MG PO HS Nitroglycerin (Nitrostat) 0.4 Mg Sub 0.4 MG SL UD PRN for Chest Pain PLACE ONE TABLET UNDER THE TONGUE EVERY 5 MINUTES FOR UP TO 3 DOSES IF NEEDED FOR CHEST PAIN. Ondansetron Hcl (Zofran) 4 Mg Tab 4 MG PO Q6 for Dizziness or Vertigo, TAB Pantoprazole (Pantoprazole Sodium) 40 Mg Tab 40 MG PO DAILY Tramadol HCl (Tramadol HCl) 50 Mg Tab 50 MG PO [facility] Referrals At Discharge Follow up Referrals: Food Product Inspector Referral - Within 6 Weeks with Vj Serrano D.O. Senior Structural Engineer Referral - 01/17/18 with Alpesh Hawkins M.D. Discharge Exam Physical Exam: General Appearance: no apparent distress ENT: pharynx normal Neck: + JVD (mild) Respiratory/Chest: no respiratory distress, no accessory muscle use, + crackles (focal, left base), + wheezing (minimal, b/l ) Cardiovascular: regular rate, rhythm, no gallop, no murmur, normal peripheral pulses, + pertinent finding (heart tones distant) Abdomen / GI: normal bowel sounds, non tender, soft, no organomegaly Extremities: no pedal edema Neurologic/Psychiatric: alert, oriented x 3 Skin: + pertinent finding (AF fistula left distal arm ) Hospital Course HISTORY OF PRESENT ILLNESS: Mr. Miranda is a 67 y/o male with PMHx of Systolic CHF (EF 20-25%), CKD Stage V ( not on dialysis yet), CAD S/P MN and PCI, Anemia of Chronic Disease, T2DM (off medications), BPH, Hyperparathyroidism, HTN, HLD, Paroxysmal Atrial Fibrillation /SVT, and H/O Gastric Bypass Surgery who presents to the ED c/o cough x 2 weeks. Patient gets Q2W blood draws to assess his anemia and to see if he needs Procrit which he received a dose today. His reports that she saw Dr. Samayoa and was concerned due to his coughing and he ordered an XRay. CXR showing subsegmental opacities of the posterior basal left lower lobe which may be pneumonia vs atelectasis and mild blunting of bilateral posterior costophrenic angles that is scarring vs atelectasis vs effusions. reports that they both have been dealing with URI symptoms but she feels like he is not getting better. He completed a Z-martinez during this illness but did not get complete relief. He reports sinus congestion and post nasal drip. He has a productive cough of yellow sputum. He has also been utilizing his 's inhaler with some relief of his symptoms. He had issues with asthma in the past but states he has had no long-term issues. He has a H/O smoking but quit in 2008 but does not think he has been diagnosed with COPD. He is also complaining of burning chest pain that has been resistant to his normal acid reducers. thinks he had a fever a couple days ago but it broke and he had a night of sweating but since returned to his normal. States he is always feeling cold. He also has some mild irritation to his L eye and states pink eye has been circulating the family. He denies purulent discharge or eye irritation currently. HOSPITAL COURSE: The patient was treated for his LLL pneumonia with 5 days of aztreonam/ doxycycline with clinical improvement. Blood cultures remained negative. He remained afebrile and hemodynamically stable his entire stay. At discharge he will complete 5 more days of doxycycline for his pneumonia. His pneumonia was complicated by acute bronchitis. This was treated with oral prednisone and scheduled nebulizer treatments. This, too, clinically improved. At discharge he will complete a short taper of prednisone and was provided prescriptions for a neb machine and duonebs for home use. He was counseled that the prednisone could lead to fluid retention and that he needed to pay strict attention to daily weights and implement his lasix, if necessary. Fortunately his chronic systolic CHF remained compensated while hospitalized. He was seen in consult for his CKD stage 5 by Chuck Cisneros nephrology. Creatinine ranged from 4.8 to 5.2 during his stay. Sodium bicarbonate therapy was added due to metabolic acidosis from his CKD stage 5. He has been counseled that he is very close to needing to initiate hemodialysis. All other medical problems remained stable while here. PT/OT cleared him for discharge home. At discharge the following were recommended - 1. outpatient BMP on , 01/16/18 2. follow-up with Dr. Hawkins on 01/17/18 3. follow-up with Dr. Vj Serrano for heme + stool (no gross blood and stable CBC during his entire stay) Total Time Spent: Greater than 30 minutes This includes examination of the patient, discharge planning, medication reconciliation, and communication with other providers. Discharge Instructions Please refer to the electronic Patient Visit Report (Discharge Instructions) for additional information. Follow-Up Dr. Hawkins on SaturdayJanuary 17 at 2:45 pm f/u with Dr. Vj Serrano, GI, within 4-6 weeks for heme + stool Additional Copies To Vj Serrano D.O.; Alpesh Hawkins M.D.; Jesus Maravilla M.D.
== END 2018-01-14 10:42 | disposition home or self-care (01) | DRG 194 ==
LOC: C.EDB 14:24 → C.2T 16:38 → EDBEDREQ 16:53 → ENRESERV 17:46
PROVIDERS: ADMIT Internal Medicine; ATTEND Internal Medicine
DX: J18.9 Pneumonia, unspecified organism (principal); I13.2 Hypertensive heart and chronic kidney disease with heart failure and with stage 5 chronic kidney disease, or end stage renal disease; N18.5 Chronic kidney disease, stage 5; I50.22 Chronic systolic (congestive) heart failure; J20.9 Acute bronchitis, unspecified; I25.10 Atherosclerotic heart disease of native coronary artery without angina pectoris; D63.8 Anemia in other chronic diseases classified elsewhere; E11.22 Type 2 diabetes mellitus with diabetic chronic kidney disease; N40.0 Benign prostatic hyperplasia without lower urinary tract symptoms; G47.00 Insomnia, unspecified; M54.9 Dorsalgia, unspecified; G89.29 Other chronic pain; H60.92 Unspecified otitis externa, left ear; Z79.02 Long term (current) use of antithrombotics/antiplatelets; Z79.899 Other long term (current) drug therapy; Z88.0 Allergy status to penicillin; Z88.1 Allergy status to other antibiotic agents; Z91.030 Bee allergy status; Z98.84 Bariatric surgery status

== ENCOUNTER → 2018-01-10 | Outpatient (CLI) | payer BC ==
[~2018-01-10] MED LIST changes: +DXY100 PO; +IPRASOL4 INH; +NEBMAC; +PRED10TA PO; +SODI650T8 PO
--- NOTE | 2018-01-10 10:53 | DIAGNOSTIC IMAGING REPORT ---
CHEST 2 VIEWS ROUTINE HISTORY: 67 years-old Male R05 Cough acute cough COMPARISON: Acute abdominal series radiographs 12/20/2017 TECHNIQUE: PA and lateral views of the chest FINDINGS: Cardiomediastinal and hilar silhouettes are within normal limits. Atherosclerosis of the aorta. No pneumothorax. Lungs are hyperinflated with diaphragmatic flattening. Blunting of the posterior costophrenic angles suggests. Minimal subsegmental opacities of the posterior basal left lower lobe. Bones of the chest appear grossly intact. Multilevel endplate spurring about the spine. Surgical clips of the upper abdomen. IMPRESSION: 1. Subsegmental opacities of the posterior basal left lower lobe suggest atelectasis or pneumonia. 2. Mild blunting of the bilateral posterior costophrenic angles may be secondary to scarring/atelectasis or trace effusions. 3. Mild hyperinflation. The above report was generated using voice recognition software. It may contain grammatical, syntax or spelling errors. Electronically signed by: Jaxon Silverio M.D. 01/10/2018 10:52 AM Dictated Date/Time: 01/10/2018 10:49 AM
== END | disposition home or self-care (01) ==
LOC: C.RAD1850 10:18
PROVIDERS: ATTEND Internal Medicine Cardiovascular Disease
DX: R91.8 Other nonspecific abnormal finding of lung field (principal)

== ENCOUNTER → 2018-01-16 | Outpatient (CLI) | payer BC ==
[~2018-01-16] MED LIST changes: -ALPR-411 PO; +CALC0.5C PO; -CALC1CAP36 PO; -CALC1SOL PO; +CLOP1TAB5 PO; +DXY100 PO; +EPGI2M SQ; -FRS/40 PO; +IPRASOL4 INH; +LSX20 PO; -LYR50 PO; -METO10TA PO; +NEBMAC; +NITR0.4S SL; +ONDA4TAB46 PO; -PANT20TA2 PO; +PANT40TA2 PO; +PRED10TA PO; +SODI650T8 PO; +TPRSR/25 PO; -TPRSR25 PO; +ULT50 PO; +XNX25 PO
[2018-01-16 13:16] LABS: HEMATOCRIT 37.4 % (42-52); HEMOGLOBIN 11.7 g/dL (14.0-18.0); MEAN CELL VOLUME 96.9 fL (80-100); MEAN CORPUSCULAR HEMOGLOBIN 30.3 pg (25-34); MEAN CORPUSCULAR HGB CONC 31.3 g/dl (32-36); MEAN PLATELET VOLUME 10.8 fL (7.4-10.4); PLATELET COUNT 322 K/uL (130-400); RED CELL DISTRIBUTION WIDTH CV 16.7 % (11.5-14.5); RED CELL DISTRIBUTION WIDTH SD 56.8 fL (36.4-46.3); WHITE BLOOD COUNT 8.69 K/uL (4.8-10.8)
[2018-01-16 15:31] LABS: BLOOD UREA NITROGEN 78 mg/dl (7-18); CALCIUM 8.9 mg/dl (8.5-10.1); CARBON DIOXIDE 16 mmol/L (21-32); CREATININE 4.99 mg/dl (0.60-1.40); GLUCOSE 94 mg/dl (70-99); PHOSPHORUS 5.5 mg/dl (2.5-4.9); POTASSIUM 4.2 mmol/L (3.5-5.1); SODIUM 134 mmol/L (136-145)
== END | disposition home or self-care (01) ==
LOC: C.LAB1850 12:19
PROVIDERS: ATTEND Internal Medicine
DX: N18.5 Chronic kidney disease, stage 5 (principal)